=== PATIENT | female | born 1955 | race Caucasian/White ===

== ENCOUNTER 2018-07-11 13:00 | Emergency (ER) | payer MEDICARE, OTHER, SELFPAY ==
[2018-07-11 13:27] VITALS: BP 120/76; PULSE 70; RESP 16; TEMP 36.8; O2SAT 97
--- NOTE | 2018-07-11 15:14 | DI.RAD_ITS ---
SYMPTOMS/DIAGNOSIS: COUGH PA AND LATERAL CHEST: The heart is normal in size. The lungs are clear. The mediastinal structures and pleura appear intact. CONCLUSION: Normal chest.
--- NOTE | 2018-07-11 15:15 | W.ED.GENAD ---
Discharge Plan Disposition Patient Disposition: HOME Condition: Fair Discharge Details Chief Complaint: RespSymp Clinical Impression: URI (upper respiratory infection) Reason For Visit: cough Primary Care Provider: EUGENIE GUZMÁN ED Provider: Georgette Killian Home Meds and New Rx's Prescriptions: New benzonatate [Tessalon Perles] 100 mg capsule 100 mg PO QID PRN (Reason: cough) Qty: 10 RF: 0 Continued multivitamin [Daily Multi-Vitamin] 1 EACH tablet 1 ea PO DAILY RF: 0 Amino Acid 1 EACH capsule 1 ea PO DAILY RF: 0 calcium carbonate 500 MG tablet,chewable 500 mg PO DAILY Qty: 3 RF: 0 cholecalciferol (vitamin D3) 2,000 UNIT tablet 2,000 unit PO DAILY RF: 0 Folbic RF 1 EACH tablet 1 ea PO DAILY RF: 0 [est/test pellets RF: 0 Magnesium (oxide/AA chelate) 300 MG capsule 600 mg PO DAILY RF: 0 aspirin 81 MG tablet,chewable 81 mg PO DAILY RF: 0 Atorvastatin Calcium 10 MG tablet 10 mg PO DAILY RF: 0 amitriptyline 25 mg Tablet 25 mg PO UNKNOWN RF: 0 gabapentin 300 MG capsule 300 mg PO DAILY RF: 0 bupropion HCl 150 MG tablet extended release 24 hr 300 mg PO DAILY RF: 0 Discharge Instructions Instructions: Upper Respiratory Infection (ED) Additional Instructions: Encourage hydration. Tylenol and/or ibuprofen as needed for discomfort. Tessalon Perles as prescribed to help with symptomatic management. If he develops shortness of breath, difficulty breathing, inability to stay hydrated or other new/worsening symptoms please seek care urgently once again. Otherwise, please follow-up with your primary care in 1 week for reevaluation. Referrals: EUGENIE GUZMÁN [Primary Care Provider] - Discharge Data Discharge Date/Time-TO BE ENTERED AT DEPARTURE: 07/11/18 16:50 Medical Decision Making Patient is 63-year-old female presenting today with chief complaint of cough. She reports that the cough initially began in April. She was seen by her primary care physician in [place] where she typically lives and was placed on ciprofloxacin. Reports that she finished her ciprofloxacin on 07/01/2018. Was that she had patient feeling quite well but seemed to have recurrence of symptoms after became ill last week. She denies any fevers or chills. Is having tussive emesis was particularly bothersome this weekend and has since begun to subside. States she is having some discomfort associated with the cough. No chest pain at rest. Is not feeling short of breath. [place] like she was wheezing last night but this too has resolved. Patient medication, noting that she is on estrogen testosterone pellets. Reports the last that she did not was testosterone only. She reports that she receives these every 6 months in [place]. She reports she is receiving these for the past 8 years to help her even out her hormones while undergoing menopause. I am concerned that with this, as well as a recent travel, she is at increased risk for PE. I discussed this with the patient. Her vital signs are reassuring. We will obtain laboratory evaluation including d-dimer as a screening tool for the Chest x-ray reviewed by myself no acute abnormalities noted. Awaiting radiology read X-ray reviewed by radiologist no acute abnormality is noted. Laboratory evaluation is reassuring. D-dimer is within normal limits. Discussed these findings with the patient. No leukocytosis. Advised this is likely viral etiology. Encouraged hydration. Tylenol and/or ibuprofen as needed for discomfort. Will prescribe Tessalon Perles for the patient as these worked well for her in the past for symptomatic management. Advise follow-up with primary care in 1 week for reevaluation of symptoms have not completely improved. We discussed new/worsening symptoms and when to seek care urgently once again. All of her questions and concerns were addressed and she is in agreement with this plan HPI General Mode of arrival: ambulatory. Date/Time Provider Initiated Documentation: 07/11/18 15:07. Limitations to Documentation: no limitations. Information obtained by: patient. History of Present Illness 63 year old F presents to the emergency department with the chief complaint of cough, described as moderate, Quality is described as aching, and is localized to the chest. Patient reports no radiation. Patient started experiencing this week(s) and it has been intermittent. No relieving factors improve symptom(s), Other factors that worsen symptoms (discomfort with cough) . Patient notes chest pain and cough; denies fever/chills, headaches, nausea/vomiting, rash, shortness of breath and syncope. Patient did receive the following treatments prior to arrival, none Related Data Home Medications Medication Instructions Recorded Confirmed Amino Acid 1 ea PO DAILY 01/22/14 07/11/18 Folbic RF 1 ea PO DAILY 01/22/14 05/11/17 calcium carbonate 500 mg PO DAILY #3 tab.chew 01/22/14 07/11/18 cholecalciferol (vitamin D3) 2,000 unit PO DAILY 01/22/14 07/11/18 multivitamin [Daily Multi-Vitamin] 1 ea PO DAILY 01/22/14 07/11/18 Magnesium (oxide/AA chelate) 600 mg PO DAILY 05/06/16 05/11/17 gabapentin 300 mg PO DAILY 05/11/17 07/11/18 bupropion HCl 300 mg PO DAILY tabcr 05/12/17 07/11/18 aspirin 81 mg PO DAILY tab-cap 05/17/17 07/11/18 Atorvastatin Calcium 10 mg PO DAILY tab-cap 06/03/17 amitriptyline 25 mg PO UNKNOWN 07/11/18 07/11/18 benzonatate [Tessalon Perles] 100 mg PO QID PRN #10 [facility] 07/11/18 Previous Rx's Medication Instructions Recorded bupropion HCl 300 mg PO DAILY tabcr 05/12/17 benzonatate [Tessalon Perles] 100 mg PO QID PRN #10 [facility] 07/11/18 Allergies Allergy/AdvReac Type Severity Reaction Status Date / Time oxycodone AdvReac nausea Unverified 07/11/18 13:34 propoxyphene AdvReac hyperactivi Unverified 07/11/18 13:34 ty General Stated Complaint: RespSymp HAYLEE: 4 Review of Systems Constitutional Reports as per HPI and Denies headache(s) Eyes Reports as per HPI, Denies eye discharge and Denies irritation ENT Denies headache(s) Cardiovascular Reports as per HPI, Reports chest pain (with cough), Denies chest pain at rest, Denies chest pain with activity, Denies diaphoresis, Denies leg edema, Denies lightheadedness, Denies palpitations, Denies dyspnea and Denies dyspnea on exertion Respiratory Reports as per HPI, Denies chest congestion, Reports cough, Denies pain on inspiration, Reports pain with cough, Denies dyspnea and Denies dyspnea on exertion Gastrointestinal Reports as per HPI, Denies abdominal pain, Denies change in bowel habits, Denies nausea and Denies vomiting Integumentary/Breasts Reports as per HPI and Denies rash Neurologic Denies headache(s) Endocrine Denies palpitations [facility] Medical History Attention deficit hyperactivity disorder Depression Hormone replacement therapy Pruritus of forearm Seasonal allergic rhinitis Shingles Surgical History section Hysterectomy, Laproscopic Family History Mother Personal history of malignant neoplasm mat aunt Personal history of malignant neoplasm Social History Smoking/Tobacco Use Status: Never Exam Const General: cooperative, healthy appearing, comfortable, no acute distress, well developed and well groomed Nutritional Appearance: average body habitus and well nourished Orientation: alert and awake [facility] Head: normal to inspection, normocephalic and atraumatic Ears: hearing grossly normal bilaterally, external ears normal and TM's normal bilaterally General nose exam: external nose normal and nares normal Face and sinus: normal facial exam, sinuses nontender and face symmetric Mouth: oral mucosae normal, lip normal, tongue normal, oropharynx normal and moist mucous membranes Teeth and gingiva: dentition normal Throat: posterior oropharynx normal, tonsils normal and uvula midline Eyes General: appearance normal, both eyes and all related structures Neck Neck: normal visual inspection, full ROM, no lymphadenopathy and no meningeal signs Chest Chest: normal inspection of the chest, normal palpation of entire chest wall and no crepitus Resp Effort & Inspection: normal respiratory effort, able to speak in complete sentences and no respiratory distress Auscultation: clear to auscultation bilaterally, no rales, no rhonchi and no wheezes Cardio Rate: regular rate Rhythm: regular rhythm Heart Sounds: S1 normal and S2 normal Skin General skin exam: no rashes or lesions noted Neuro General: alert and awake Cognition: normal cognition Speech: speech normal Gait: normal gait Extrem General: normal to inspection, no pedal edema, no calf tenderness and normal gait Psych Appearance: grossly normal and well kempt Mental Status: mental status grossly normal Speech and Movement: speech and movement normal Course Vital Signs Temperature 36.8 C 07/11/18 13:27 Pulse 70 07/11/18 13:27 Respiratory Rate 16 07/11/18 13:27 Blood Pressure 120/76 07/11/18 13:27 Pulse Oximetry 97 07/11/18 13:27 Temperature 36.8 C 07/11/18 13:27 Pulse 70 07/11/18 13:27 Respiratory Rate 16 07/11/18 13:27 Respiratory Effort Non-Labored 07/11/18 14:49 Respiratory Depth Normal 07/11/18 14:49 Blood Pressure 120/76 07/11/18 13:27 Blood Pressure Position Sitting 07/11/18 13:27 Pulse Oximetry 97 07/11/18 13:27
--- NOTE | 2018-07-11 15:18 | ED.GENADUL_ITS ---
Discharge Plan Disposition Patient Disposition: HOME Condition: Fair Discharge Details Chief Complaint: RespSymp Clinical Impression: URI (upper respiratory infection) Reason For Visit: cough Primary Care Provider: EUGENIE GUZMÁN ED Provider: Georgette Killian Home Meds and New Rx's Prescriptions: New benzonatate [Tessalon Perles] 100 mg capsule 100 mg PO QID PRN (Reason: cough) Qty: 10 RF: 0 Continued multivitamin [Daily Multi-Vitamin] 1 EACH tablet 1 ea PO DAILY RF: 0 Amino Acid 1 EACH capsule 1 ea PO DAILY RF: 0 calcium carbonate 500 MG tablet,chewable 500 mg PO DAILY Qty: 3 RF: 0 cholecalciferol (vitamin D3) 2,000 UNIT tablet 2,000 unit PO DAILY RF: 0 Folbic RF 1 EACH tablet 1 ea PO DAILY RF: 0 [est/test pellets RF: 0 Magnesium (oxide/AA chelate) 300 MG capsule 600 mg PO DAILY RF: 0 aspirin 81 MG tablet,chewable 81 mg PO DAILY RF: 0 Atorvastatin Calcium 10 MG tablet 10 mg PO DAILY RF: 0 amitriptyline 25 mg Tablet 25 mg PO UNKNOWN RF: 0 gabapentin 300 MG capsule 300 mg PO DAILY RF: 0 bupropion HCl 150 MG tablet extended release 24 hr 300 mg PO DAILY RF: 0 Discharge Instructions Instructions: Upper Respiratory Infection (ED) Additional Instructions: Encourage hydration. Tylenol and/or ibuprofen as needed for discomfort. Tessalon Perles as prescribed to help with symptomatic management. If he develops shortness of breath, difficulty breathing, inability to stay hydrated or other new/worsening symptoms please seek care urgently once again. Otherwise, please follow-up with your primary care in 1 week for reevaluation. Referrals: EUGENIE GUZMÁN [Primary Care Provider] - Discharge Data Discharge Date/Time-TO BE ENTERED AT DEPARTURE: 07/11/18 16:50 Medical Decision Making Patient is 63-year-old female presenting today with chief complaint of cough. She reports that the cough initially began in April. She was seen by her primary care physician in [place] where she typically lives and was placed on ciprofloxacin. Reports that she finished her ciprofloxacin on 07/01/2018. Was that she had patient feeling quite well but seemed to have recurrence of symptoms after became ill last week. She denies any fevers or chills. Is having tussive emesis was particularly bothersome this weekend and has since begun to subside. States she is having some discomfort associated with the cough. No chest pain at rest. Is not feeling short of breath. [place] like she was wheezing last night but this too has resolved. Patient medication, noting that she is on estrogen testosterone pellets. Reports the last that she did not was testosterone only. She reports that she receives these every 6 months in [place]. She reports she is receiving these for the past 8 years to help her even out her hormones while undergoing menopause. I am concerned that with this, as well as a recent travel, she is at increased risk for PE. I discussed this with the patient. Her vital signs are reassuring. We will obtain laboratory evaluation including d-dimer as a screening tool for the Chest x-ray reviewed by myself no acute abnormalities noted. Awaiting radiology read X-ray reviewed by radiologist no acute abnormality is noted. Laboratory evaluation is reassuring. D-dimer is within normal limits. Discussed these findings with the patient. No leukocytosis. Advised this is likely viral etiology. Encouraged hydration. Tylenol and/or ibuprofen as needed for discomfort. Will prescribe Tessalon Perles for the patient as these worked well for her in the past for symptomatic management. Advise follow-up with primary care in 1 week for reevaluation of symptoms have not completely improved. We discussed new/worsening symptoms and when to seek care urgently once again. All of her questions and concerns were addressed and she is in agreement with this plan HPI General Mode of arrival: ambulatory . Date/Time Provider Initiated Documentation: 07/11/18 15:07 . Limitations to Documentation: no limitations . Information obtained by: patient . History of Present Illness 63 year old F presents to the emergency department with the chief complaint of cough, described as moderate, Quality is described as aching, and is localized to the chest. Patient reports no radiation. Patient started experiencing this week(s) and it has been intermittent. No relieving factors improve symptom(s), Other factors that worsen symptoms (discomfort with cough) . Patient notes chest pain and cough; denies fever/chills, headaches, nausea/vomiting, rash, shortness of breath and syncope. Patient did receive the following treatments prior to arrival, none Related Data Home Medications Medication Instructions Recorded Confirmed Amino Acid 1 ea PO DAILY 01/22/14 07/11/18 Folbic RF 1 ea PO DAILY 01/22/14 05/11/17 calcium carbonate 500 mg PO DAILY #3 tab.chew 01/22/14 07/11/18 cholecalciferol (vitamin D3) 2,000 unit PO DAILY 01/22/14 07/11/18 multivitamin [Daily Multi-Vitamin] 1 ea PO DAILY 01/22/14 07/11/18 Magnesium (oxide/AA chelate) 600 mg PO DAILY 05/06/16 05/11/17 gabapentin 300 mg PO DAILY 05/11/17 07/11/18 bupropion HCl 300 mg PO DAILY tabcr 05/12/17 07/11/18 aspirin 81 mg PO DAILY tab-cap 05/17/17 07/11/18 Atorvastatin Calcium 10 mg PO DAILY tab-cap 06/03/17 amitriptyline 25 mg PO UNKNOWN 07/11/18 07/11/18 benzonatate [Tessalon Perles] 100 mg PO QID PRN #10 [facility] 07/11/18 Previous Rx's Medication Instructions Recorded bupropion HCl 300 mg PO DAILY tabcr 05/12/17 benzonatate [Tessalon Perles] 100 mg PO QID PRN #10 [facility] 07/11/18 Allergies Allergy/AdvReac Type Severity Reaction Status Date / Time oxycodone AdvReac nausea Unverified 07/11/18 13:34 propoxyphene AdvReac hyperactivi Unverified 07/11/18 13:34 ty General Stated Complaint: RespSymp HAYLEE: 4 Review of Systems Constitutional Reports as per HPI and Denies headache(s) Eyes Reports as per HPI, Denies eye discharge and Denies irritation ENT Denies headache(s) Cardiovascular Reports as per HPI, Reports chest pain (with cough), Denies chest pain at rest, Denies chest pain with activity, Denies diaphoresis, Denies leg edema, Denies lightheadedness, Denies palpitations, Denies dyspnea and Denies dyspnea on exertion Respiratory Reports as per HPI, Denies chest congestion, Reports cough, Denies pain on inspiration, Reports pain with cough, Denies dyspnea and Denies dyspnea on exertion Gastrointestinal Reports as per HPI, Denies abdominal pain, Denies change in bowel habits, Denies nausea and Denies vomiting Integumentary/Breasts Reports as per HPI and Denies rash Neurologic Denies headache(s) Endocrine Denies palpitations [facility] Medical History Attention deficit hyperactivity disorder Depression Hormone replacement therapy Pruritus of forearm Seasonal allergic rhinitis Shingles Surgical History section Hysterectomy, Laproscopic Family History Mother Personal history of malignant neoplasm mat aunt Personal history of malignant neoplasm Social History Smoking/Tobacco Use Status: Never Exam Const General: cooperative, healthy appearing, comfortable, no acute distress, well developed and well groomed Nutritional Appearance: average body habitus and well nourished Orientation: alert and awake [facility] Head: normal to inspection, normocephalic and atraumatic Ears: hearing grossly normal bilaterally, external ears normal and TM's normal bilaterally General nose exam: external nose normal and nares normal Face and sinus: normal facial exam, sinuses nontender and face symmetric Mouth: oral mucosae normal, lip normal, tongue normal, oropharynx normal and moist mucous membranes Teeth and gingiva: dentition normal Throat: posterior oropharynx normal, tonsils normal and uvula midline Eyes General: appearance normal, both eyes and all related structures Neck Neck: normal visual inspection, full ROM, no lymphadenopathy and no meningeal signs Chest Chest: normal inspection of the chest, normal palpation of entire chest wall and no crepitus Resp Effort & Inspection: normal respiratory effort, able to speak in complete sentences and no respiratory distress Auscultation: clear to auscultation bilaterally, no rales, no rhonchi and no wheezes Cardio Rate: regular rate Rhythm: regular rhythm Heart Sounds: S1 normal and S2 normal Skin General skin exam: no rashes or lesions noted Neuro General: alert and awake Cognition: normal cognition Speech: speech normal Gait: normal gait Extrem General: normal to inspection, no pedal edema, no calf tenderness and normal gait Psych Appearance: grossly normal and well kempt Mental Status: mental status grossly normal Speech and Movement: speech and movement normal Course Vital Signs Temperature 36.8 C 07/11/18 13:27 Pulse 70 07/11/18 13:27 Respiratory Rate 16 07/11/18 13:27 Blood Pressure 120/76 07/11/18 13:27 Pulse Oximetry 97 07/11/18 13:27 Temperature 36.8 C 07/11/18 13:27 Pulse 70 07/11/18 13:27 Respiratory Rate 16 07/11/18 13:27 Respiratory Effort Non-Labored 07/11/18 14:49 Respiratory Depth Normal 07/11/18 14:49 Blood Pressure 120/76 07/11/18 13:27 Blood Pressure Position Sitting 07/11/18 13:27 Pulse Oximetry 97 07/11/18 13:27
[2018-07-11 16:07] LABS: Abs Immature Grans 0.01 k/cumm (0.0-0.09); Absolute Basophil Count 0.05 k/cumm (0.0-0.2); Absolute Eosinophil Count 0.08 k/cumm (0.0-0.7); Absolute Lymphocyte Count 1.98 k/cumm (1.2-3.4); Absolute Monocyte Count 0.53 k/cumm (0.11-0.7); Absolute Neutrophil Count 2.74 k/cumm (1.2-6.7); Basophils % 0.9; Eosinophils % 1.5; HCT 40.5 % (36.0-46.0); HGB 13.4 g/dL (12.0-15.5); Immature Grans % 0.2; Lymphocytes % 36.7; Mean Corp. HGB Concentration 33.1 g/dL (32.0-36.0); Mean Corpuscular Volume 90.8 fL (80-95); Mean Platelet Volume 10.3 fL (8.0-11.0); Monocytes % 9.8; Neutrophils % 50.9; Platelet Count 220 x1000/uL (130-400); RBC 4.46 m/cumm (4.00-5.20); RBC Distribution Width 13.7 % (11.7-14.6); White Blood Cell Count 5.39 k/cumm (4.4-10.8)
[2018-07-11 16:19] LABS: ALT 37 U/L (12-78); AST 36 U/L (15-37); Albumin 3.7 g/dL (3.4-5.0); Alkaline Phosphatase 62 U/L (46-116); Anion Gap 8.6 mmol/L (3-11); BUN 8 mg/dL (7-18); Bilirubin, Total 0.3 mg/dL (0.2-1.0); CO2 28.4 mmol/L (21.0-32.0); CREATININE 0.73 mg/dL (0.55-1.02); Calcium 8.4 mg/dL (8.5-10.1); Chloride 98 mmol/L (98-107); Glucose 82 mg/dL (70-100); Potassium 3.5 mmol/L (3.5-5.1); Sodium 135 mmol/L (136-145); Total Protein 7.7 g/dL (6.4-8.2)
[2018-07-11 16:34] LABS: D-Dimer 404 ng/mlFEU (<500)
== END 2018-07-11 16:50 | disposition home or self-care (01) ==
PROVIDERS: Emergency Provider Physician Assistant; PCP Family Medicine
DX: J06.9 Acute upper respiratory infection, unspecified (principal)
CPT/HCPCS: 80053; 99283; 71046; 85025; 85379

== ENCOUNTER 2019-02-03 11:00 | Outpatient (REF) | payer MEDICARE, OTHER, SELFPAY | END 2019-02-03 11:20 | LOC: LBN 11:00 | PROVIDERS: PCP Family Medicine; Visit Provider Nurse Practitioner Family | DX: R10.2 Pelvic and perineal pain (principal) | CPT/HCPCS: 87086 ==

== ENCOUNTER 2019-11-22 02:22 | Outpatient (CLI) | payer MEDICARE, OTHER, SELFPAY ==
[2019-11-22 12:33] LABS: HCT 42.1 % (36.0-46.0); HGB 14.3 g/dL (12.0-15.5); Mean Corpuscular Volume 94.2 fL (80-95); Mean Platelet Volume 10.5 fL (8.0-11.0); Platelet Count 285 x1000/uL (130-400); RBC 4.47 m/cumm (4.00-5.20); White Blood Cell Count 6.59 k/cumm (4.4-10.8)
[2019-11-22 16:31] LABS: Estradiol 44 pg/mL (See Note)
[2019-11-23 09:48] LABS: FSH 30.9 mIU/mL (See Note)
[2019-11-25 05:34] LABS: Testosterone, Total 11 ng/dL (8-60)
== END 2019-11-22 02:42 ==
PROVIDERS: PCP Registered Nurse; Visit Provider Obstetrics & Gynecology
DX: N95.8 Other specified menopausal and perimenopausal disorders (principal); R10.2 Pelvic and perineal pain
CPT/HCPCS: 36415; 84403; 85027; 82670; 83001

== ENCOUNTER 2020-02-16 14:41 | Outpatient (REF) | payer MEDICARE, OTHER, SELFPAY ==
[2020-02-16 21:40] LABS: Anion Gap 8.1 mmol/L (3-11); BUN 13 mg/dL (7-18); CO2 28.9 mmol/L (21.0-32.0); CREATININE 0.74 mg/dL (0.55-1.02); Calcium 9.2 mg/dL (8.5-10.1); Chloride 103 mmol/L (98-107); Glucose 83 mg/dL (74-106); Potassium 4.2 mmol/L (3.5-5.1); Sodium 140 mmol/L (136-145)
== END 2020-02-16 15:01 ==
LOC: NCHCN 14:41
PROVIDERS: PCP Registered Nurse; Visit Provider Registered Nurse
DX: I10 Essential (primary) hypertension (principal)
CPT/HCPCS: 80048

== ENCOUNTER 2020-02-26 10:11 | Outpatient (REF) | payer MEDICARE, OTHER, SELFPAY ==
[2020-02-26 20:40] LABS: Anion Gap 9.4 mmol/L (3-11); BUN 16 mg/dL (7-18); CO2 26.6 mmol/L (21.0-32.0); CREATININE 0.91 mg/dL (0.55-1.02); Calcium 9.6 mg/dL (8.5-10.1); Chloride 102 mmol/L (98-107); Glucose 108 mg/dL (74-106); Potassium 5.1 mmol/L (3.5-5.1); Sodium 138 mmol/L (136-145)
== END 2020-02-26 10:31 ==
LOC: NCHCN 10:11
PROVIDERS: PCP Registered Nurse; Visit Provider Registered Nurse
DX: I10 Essential (primary) hypertension (principal)
CPT/HCPCS: 80048

== ENCOUNTER 2020-03-27 01:09 | Outpatient (CLI) | payer MEDICARE, OTHER, SELFPAY ==
--- NOTE | 2020-03-27 | DI.MAMMO_ITS ---
EXAM: MAMMO SCREENING CLINICAL HISTORY: SCREENING MAMMO Z12.39 TECHNIQUE: Mammograms were interpreted according to the usual protocol including computer analysis w [employer] CAD system, tomosynthesis and C-view imaging. COMPARISON: 2010 through 2016 FINDINGS: The breasts are composed of heterogeneously dense fibroglandular densities, Breast Density category C . No suspicious masses or suspicious microcalcifications are seen. Vascular calcifications are inciden tally noted. No skin thickening or abnormal axillary lymph nodes are seen. There has been no significant change from prior exams. IMPRESSION: BI-RADS Category 1: Negative mammogram Yearly screening mammography is recommended. Breast Density - Category C, heterogeneously dense tissue which decreases the sensitivity of the mamm ogram. The mammogram demonstrates the patient's breast tissue is dense. Dense breast tissue is very common a nd is not abnormal but dense breast tissue can make it harder to find cancer on a mammogram. Also, de nse breast tissue may increase breast cancer risk. This information about the result of the mammogram report was provided to the patient to raise their awareness. Use this report when you speak with the patient about their risks for breast cancer, which includes their family history. At that time, you may recommend additional screening tests (Ultrasound or MRI) as they might be useful based on their r isk. A negative radiographic report should not delay biopsy if a dominant or clinically suspicious mass is present. Up to ten percent of cancers are not identified on mammography. A negative report may reinforce clinical impression. Adenosis and dense breasts may obscure an underlying neoplasm. False positive reports average 6 to 10%.
== END 2020-03-27 01:29 ==
PROVIDERS: PCP Registered Nurse; Visit Provider Registered Nurse
DX: Z12.31 Encounter for screening mammogram for malignant neoplasm of breast (principal); R92.2 Inconclusive mammogram
CPT/HCPCS: 77063; 77067

== ENCOUNTER 2020-05-08 09:56 | Outpatient (CLI) | payer MEDICARE, OTHER, SELFPAY ==
[2020-05-10 16:43] LABS: Patient Race White; SARS-CoV-2 RNA Undetected (Undetected); SARS-CoV-2 Specimen Source Nasal
== END 2020-05-08 10:16 ==
LOC: NCHCO 09:59 → LBO 12:34
PROVIDERS: PCP Registered Nurse; Visit Provider Registered Nurse
DX: Z20.828 Contact with and (suspected) exposure to other viral communicable diseases (principal)
CPT/HCPCS: U0003

== ENCOUNTER 2020-05-22 09:35 | Outpatient (CLI) | payer MEDICARE, OTHER, SELFPAY ==
[2020-05-26 19:06] LABS: Patient Race White; SARS-CoV-2 RNA Undetected (Undetected); SARS-CoV-2 Specimen Source Nasal
== END 2020-05-22 09:55 ==
PROVIDERS: PCP Registered Nurse; Visit Provider Registered Nurse
DX: Z20.828 Contact with and (suspected) exposure to other viral communicable diseases (principal)
CPT/HCPCS: U0003

== ENCOUNTER 2020-11-28 11:04 | Outpatient (REF) | payer MEDICARE, OTHER, SELFPAY ==
[2020-11-28 13:28] LABS: Anion Gap 8.3 mmol/L (3-11); BUN 18 mg/dL (7-18); CO2 26.7 mmol/L (21.0-32.0); CREATININE 0.7 mg/dL (0.55-1.02); Calcium 9.8 mg/dL (8.5-10.1); Chloride 105 mmol/L (98-107); Glucose 122 mg/dL (74-106); Potassium 4.7 mmol/L (3.5-5.1); Sodium 140 mmol/L (136-145)
== END 2020-11-28 11:05 | disposition home or self-care (01) ==
LOC: NCHCN 11:04
PROVIDERS: PCP Registered Nurse; Visit Provider Registered Nurse
DX: I10 Essential (primary) hypertension (principal)
CPT/HCPCS: 80048

== ENCOUNTER 2020-12-06 01:58 | Outpatient (CLI) | payer MEDICARE, OTHER, SELFPAY ==
[2020-12-06 10:38] LABS: Source Nasal/Nares
[2020-12-06 15:04] LABS: COVID-19 PCR Negative (Negative)
== END 2020-12-06 01:59 | disposition home or self-care (01) ==
LOC: LBO 01:59
PROVIDERS: PCP Registered Nurse; Visit Provider Otolaryngology
DX: Z20.822 Contact with and (suspected) exposure to COVID-19 (principal); Z01.818 Encounter for other preprocedural examination
CPT/HCPCS: 87635

== ENCOUNTER 2021-01-13 02:03 | Outpatient (CLI) | payer MEDICARE, OTHER, SELFPAY ==
--- NOTE | 2021-01-13 | DI.US_ITS ---
Exam(s) US THYROID EXAM: US THYROID CLINICAL HISTORY: FU THYROID NODULE E04.1. TECHNIQUE: Ultrasound thyroid performed using standard protocol. COMPARISON: US CAROTID ULTRASOUND from 05/12/2017 FINDINGS: Both thyroid lobes as well as the isthmus exhibit normal size RIGHT THYROID LOBE: Measures 1.5 cm AP x 1 point cm wide x 4.6 cm craniocaudal LEFT THYROID LOBE: Measures 1.5 cm AP x 1.3 wide x 4.0 cm craniocaudal ISTHMUS: 3 millimeters thick, within normal limits. There is a colloid cyst in the left side of the isthmus which measures 3 x 2 millimeters. Significant nodules are as follows: RIGHT THYROID LOBE: There is a solitary 2-3 millimeter benign colloid cyst in the right lobe. Previously described incid ental finding of the right lobe seen on carotid ultrasound 2017 is not seen on present study. There is no significant adenopathy on the right side. LEFT THYROID LOBE: Nodule #1 the dominant nodule in the left lobe located posteriorly, medial to the carotid artery. Size: 0.8 cm x 0.5 cm x 0.7 cm Composition: Mixed solid cystic = 1 point Echogenicity: Hypoechoic= 2 point Shape: Wider than taller= 0 points Margin: Ill- defined- 0 points Echogenic Foci: None= 0 points Total points for this nodule: 3 ACR Ti-Rads Category: 3-mildly suspicious. Nodule #2 Size: 0.5 cm x 0.3 cm x 0.4 cm Composition: Solid= 2 point Echogenicity: Isoechoic= 1 point Shape: Wider than taller= 0 point Margin: [id number]-[id number]= 0 points Echogenic Foci: None= 0 point Total Points for this nodule: 3 ACR Ti-Rads Category: 3 Nodule #3 Size: 0.3 cm x 0.4 cm x 0.3 cm Composition: Spongiform= 0 point Echogenicity: Isoechoic= 1 point Shape: Wider than taller= 0 point Margin: Well-defined= 0 points Echogenic Foci: None= 0 point Total points for this nodule: 1 ACR Ti-Rads Category: 2 ISTHMUS: There is a colloid cyst at the junction of the isthmus and left lobe measuring 3 millimeters. LYMPH NODES: There is no significant adenopathy. IMPRESSION: 1. The dominant nodule in the left lobe is is category TiRads 3 and measures less than 1 cm. Appropr iate follow-up is repeat ultrasound in 6 months. TiRads: 3 2. Solitary benign colloid cyst in the right lobe peer 3. There is no significant lymphadenopathy. DATA REPOSITORY:
== END 2021-01-13 02:23 ==
PROVIDERS: PCP Registered Nurse; Visit Provider Otolaryngology
DX: E04.2 Nontoxic multinodular goiter (principal); E04.1 Nontoxic single thyroid nodule
CPT/HCPCS: 76536

== ENCOUNTER → 2021-01-30 08:16 | Outpatient (BNVA) | payer MEDICARE, OTHER, SELFPAY | PROVIDERS: PCP Registered Nurse; Referring Provider Registered Nurse; Visit Provider Psychiatry & Neurology Neurology | DX: R20.0 Anesthesia of skin (principal); I10 Essential (primary) hypertension; E78.5 Hyperlipidemia, unspecified; F32.9 Major depressive disorder, single episode, unspecified; R90.82 White matter disease, unspecified; Z86.19 Personal history of other infectious and parasitic diseases | CPT/HCPCS: 99215 ==

== ENCOUNTER 2021-03-28 09:52 | Outpatient (REF) | payer MEDICARE, OTHER, SELFPAY ==
--- NOTE | 2021-03-28 09:00 | PAPFT_PTH ---
PATIENT: Laura Forman LOC: [facility] U#:[id number] AGE/SX: 65/F ROOM: RE03/28/[address]: JUSTIN Edmonds : 1955 BED: DIS: 03/28/2021 SPEC #: [id number] RECD: 03/28/21 12:55 STATUS: SNEHAL REKayleigh #: [id number] HUBERT: 03/28/21 09:[address]: Nicolasa Fulton DEPT: [facility] Cytology RECD BY: Fariba Nuñez ENTERED: 03/28/21 12:55 SP TYPE: PAPFT OTHR DR: Bernie Jaime Tissues: 1 - CX/ENDOCX FOR PAP SMEARS Procedures: PAP THIN PREP/UVM Screening HPV DNA PROBE Comments: [id number]
== END 2021-03-28 09:53 | disposition home or self-care (01) ==
LOC: LBN 09:52
PROVIDERS: PCP Registered Nurse; Visit Provider Nurse Practitioner Family
DX: Z12.4 Encounter for screening for malignant neoplasm of cervix (principal); Z11.51 Encounter for screening for human papillomavirus (HPV); Z01.419 Encounter for gynecological examination (general) (routine) without abnormal findings
CPT/HCPCS: 88142; 87624

== ENCOUNTER 2021-04-25 03:43 | Outpatient (CLI) | payer MEDICARE, OTHER, SELFPAY ==
--- NOTE | 2021-04-25 15:15 | DI.MAMMO_ITS ---
Exam(s) MAMMO SCREENING EXAM: MAMMO SCREENING CLINICAL HISTORY: SCREENING, Z12.39 TECHNIQUE: Mammograms were interpreted according to the usual protocol including computer analysis w [facility] CAD system, tomosynthesis and C-view imaging. COMPARISON: FINDINGS: The breasts are heterogeneously dense. No dominant mass or clumped microcalcification is identified in either breast. The current examination is compared with previous examinations including March 2020 and there has been no gross interval change in appearance in comparison with the prior studies. IMPRESSION: No specific evidence of malignancy at this time. Routine screening examinations are suggested at yea rly intervals in this age group according to the ACS ACR guidelines. BI-RADS Category 1 - Negative Breast Density - Category C - Heterogeneously dense
== END 2021-04-25 04:03 ==
PROVIDERS: PCP Registered Nurse; Visit Provider Nurse Practitioner Family
DX: Z12.31 Encounter for screening mammogram for malignant neoplasm of breast (principal); R92.8 Other abnormal and inconclusive findings on diagnostic imaging of breast
CPT/HCPCS: 77063; 77067

== ENCOUNTER 2021-06-03 09:02 | Outpatient (CLI) | payer MEDICARE, OTHER, SELFPAY ==
[2021-06-03 16:13] LABS: TSH 0.79 uIU/mL (0.36-3.74)
[2021-06-03 22:13] LABS: Estradiol 52 pg/mL (See Note); Progesterone <0.2 ng/mL (See Table)
[2021-06-03 22:50] LABS: FSH 29.7 mIU/mL (See Note)
[2021-06-06 14:21] LABS: Estrone 37 pg/mL
[2021-06-07 16:45] LABS: Testosterone, Free 1.23 ng/dL (0.06-0.84); Testosterone, Total 49 ng/dL (8-60)
== END 2021-06-03 09:03 | disposition home or self-care (01) ==
LOC: LBO 09:05
PROVIDERS: PCP Registered Nurse; Visit Provider Obstetrics & Gynecology
DX: R53.1 Weakness (principal); E83.50 Unspecified disorder of calcium metabolism; G47.00 Insomnia, unspecified; N92.1 Excessive and frequent menstruation with irregular cycle; N95.8 Other specified menopausal and perimenopausal disorders; N95.1 Menopausal and female climacteric states
CPT/HCPCS: 36415; 84402; 84403; 82626; 82670; 82679; 83001; 83002; 84144; 84443

== ENCOUNTER 2021-06-05 17:30 | Outpatient (REF) | payer MEDICARE, SELFPAY ==
[2021-06-05 21:15] LABS: Hemoglobin A1C 5.7 % (<5.7)
[2021-06-05 21:18] LABS: Calculated LDL 64 mg/dL (<100); Cholesterol 195 mg/dL (<200); HDL Cholesterol 98 mg/dL (40-60); Triglyceride 167 mg/dL (<150)
== END 2021-06-05 17:31 | disposition home or self-care (01) ==
LOC: NCHCN 17:30
PROVIDERS: PCP Registered Nurse; Visit Provider Registered Nurse
DX: E83.50 Unspecified disorder of calcium metabolism (principal); I10 Essential (primary) hypertension; E78.5 Hyperlipidemia, unspecified; Z00.00 Encounter for general adult medical examination without abnormal findings
CPT/HCPCS: 80061; 83036

== ENCOUNTER → 2022-01-02 00:22 | Outpatient (CLI) | payer MEDICARE, OTHER, SELFPAY ==
--- NOTE | 2022-01-02 | DI.DEXA_ITS ---
Exam(s) XR DEXA BONE DENSITY W/WO RILEY EXAM: XR DEXA BONE DENSITY W/WO RILEY CLINICAL HISTORY: POSTMENOPAUSAL Z78.0 SCREENING FOR OSTEOPOROSIS TECHNIQUE: COMPARISON: No exams were available for comparison FINDINGS: DEXA scan was performed according to the usual protocol. Please see the accompanying data sheets. Findings for left hip scanning are T-score -0.9 with left femoral neck T-score -1.8. Prior examinati on of July 07 showed left hip T-score -1.3. Lumbar spine scanning shows T-score -0.6. Prior examination of 05/01 showed lumbar T-score -1.5. Left forearm scanning shows T-score -0.3. IMPRESSION: DEXA scan shows findings consistent with osteopenia according to the WHO criteria. The lateral vertebral scanogram shows no evidence of a vertebral compression fracture. RADIATION DOSE DELIVERED: Total DLP
== END ==
PROVIDERS: PCP Registered Nurse; Visit Provider Registered Nurse
DX: Z78.0 Asymptomatic menopausal state (principal); Z13.820 Encounter for screening for osteoporosis
CPT/HCPCS: 77080

== ENCOUNTER → 2022-05-19 02:42 | Outpatient (CLI) | payer MEDICARE, OTHER, SELFPAY ==
--- NOTE | 2022-05-19 | DI.MAMMO_ITS ---
Exam(s) MAMMO SCREENING EXAM: MAMMO SCREENING CLINICAL HISTORY: SCREENING, Z12.39. TECHNIQUE: Bilateral full field digital CC and MLO mammographic images were obtained with 3D tomosyn thesis and utilizing computer aided detection (CAD). COMPARISON: Prior mammograms were reviewed. FINDINGS: There has been no significant change in the appearance and distribution of the fibroglandular tissue which is moderately dense. There are no new spiculated masses nor malignant appearing microcalcification groups. There is no significant architectural distortion nor skin thickening-retraction. IMPRESSION: No radiographic evidence of malignancy. BI-RADS Category 1 - Negative Breast Density - Category C - Heterogeneously dense Breast density Category C or D implies that the patient has dense breast tissue. Dense breast tissue can make it harder to find cancer on a mammogram. Dense breast tissue is also associated with an incr eased risk of breast cancer. This information about the result of the mammogram report was provided to the patient to raise their awareness. Use this report when you speak with the patient about their risks for breast cancer, which includes their family history. At that time, you may recommend additional screening tests (Ultrasoun d or MRI) as these tests may add significant information. A negative radiographic report should not delay biopsy if a dominant or clinically suspicious mass is present. Up to ten percent of cancers are not identified on mammography. A negative report may reinforce clinical impression. Adenosis and dense breasts may obscure an underlying neoplasm. False positive reports average 6 to 10%. Patient will receive a letter notifying them of these results.
== END ==
PROVIDERS: PCP Registered Nurse; Visit Provider Registered Nurse
DX: Z12.31 Encounter for screening mammogram for malignant neoplasm of breast (principal); R92.8 Other abnormal and inconclusive findings on diagnostic imaging of breast
CPT/HCPCS: 77063; 77067

== ENCOUNTER 2023-01-14 02:20 | Outpatient (CLI) | payer MEDICARE, OTHER, SELFPAY ==
--- NOTE | 2023-01-14 08:30 | DI.US_ITS ---
Exam(s) US THYROID EXAM: US THYROID CLINICAL HISTORY: THYROID NODULE, E04.1. TECHNIQUE: Ultrasound thyroid performed using standard protocol. COMPARISON: US US THYROID from 01/13/2021 FINDINGS: ISTHMUS: 2 mm RIGHT LOBE: Size: 4.6 x 1.5 x 1.7 cm Echogenicity: Normal. Vascularity: Normal. Nodules: A few scattered tiny nodules. LEFT LOBE: Size: 4.9 x 1.5 x 1.3 cm Echogenicity: Heterogeneous Vascularity: Normal. Nodules: Previously noted hypoechoic nodule near the upper pole of the left lobe is not discretely se en on today's exam. There has been mild interval increase in size of circumscribed cystic lesion wit h isoechoic internal focus, labeled nodule 2 on the prior exam. It now measured 9 x 5 x 8 millimeter s. The increase in size is due to increase in cystic component of the lesion. Findings have a benig n appearance, TR 2. No follow-up recommended. The 5 millimeter spongiform nodules noted at the lowe r pole. Appears unchanged. OTHER FINDINGS: None. IMPRESSION: No suspicious thyroid nodules. DATA REPOSITORY:
== END 2023-01-14 02:40 ==
PROVIDERS: PCP Registered Nurse; Visit Provider Otolaryngology
DX: E04.1 Nontoxic single thyroid nodule (principal)
CPT/HCPCS: 76536

== ENCOUNTER 2023-01-25 18:56 | Outpatient (REF) | payer MEDICARE, SELFPAY ==
[2023-01-25 20:26] LABS: Anion Gap 8.4 mmol/L (3-11); BUN 12 mg/dL (7-18); CO2 27.6 mmol/L (21.0-32.0); CREATININE 0.7 mg/dL (0.55-1.02); Calcium 9.3 mg/dL (8.5-10.1); Chloride 104 mmol/L (98-107); Estimated GFR 93.56 (mL/min/1.73m2); Glucose 99 mg/dL (74-106); Potassium 4.6 mmol/L (3.5-5.1); Sodium 140 mmol/L (136-145)
[2023-01-25 20:34] LABS: Hemoglobin A1C 5.6 % (<5.7)
== END 2023-01-25 18:57 | disposition home or self-care (01) ==
LOC: NCHCN 18:56
PROVIDERS: PCP Registered Nurse; Visit Provider Registered Nurse
DX: I10 Essential (primary) hypertension (principal); R73.03 Prediabetes
CPT/HCPCS: 80048; 83036

== ENCOUNTER 2024-03-24 00:08 | Outpatient (CLI) | payer MEDICARE, SELFPAY ==
--- OUTSIDE RECORDS SUMMARY | 2024-03-24 00:09 | XMS_ITS | Encounter Summary ---
Author Organization [facility] [place] [address] Care Team Providers Care Lens Inserter Name Role Phone Bernie Jaime APRN Primary Care Provider + Encounter Details Date Type Department Care Team (Latest Contact Info) Description 03/26/2023 Travel Social History Tobacco Use Types Packs/Day Years Used Date Smoking Tobacco: Never Smokeless Tobacco: Never Alcohol Use Standard Drinks/Week Comments No 0 (1 standard drink = 0.6 oz pur e alcohol) Sex and Gender Information Value Date Recorded Sex Assigned at Not on file Gender Identity Not on file Sexual Orientation Not on file documented as of this encounter Plan of Treatment Upcoming Encounters Date Type Department Care Team (Late st Contact Info) Description 05/02/2024 1:45 PM EDT Office Visit Dermatology at [facility] [address] [place] [address] Chula Mondragon MD [facility] DR [address] [place] [address] documented as of this encounter Visit Diagnoses Not on filedocumented in this encounter Care Teams Lens Inserter Relationship Specialty Start Date End Date Bernie Jaime APRN [address] [place], [place] [address] PCP - General Family Medicine 9/12/19 documented as of this encounter
--- OUTSIDE RECORDS SUMMARY | 2024-03-24 00:09 | XMS_ITS | Clinical Summary ---
Author Organization [facility] Address [facility] [place] [address] Care Team Providers Care Banker Mason Name Role Phone Bernie Jaime APRN Primary Care Provider + Allergies Active Allergy Reactions Criticality Noted Date Comments Propoxyphene Hcl Medications Medication Sig Dispensed Refills Start Date End Date Status CIS Free Text Med - Progesterone 10/10/2007 Active Additional Information Patient not taking.Reported on 01/24/2018 buPROPion (WELLBUTRIN XL) 300 mg Tablet Sustained Release 24 hr Take 300 mg by mouth every morning. Active dextroamphetamine-amp hetamine (ADDERALL XR) 30 mg Capsule, Sust. Release 24 hr Take 60 mg by mouth every morning. Active gabapentin (NEURONTIN) 300 mg Capsule Take 300 mg by mouth daily. Active atorvastatin (LIPITOR) 10 mg Tablet Take 10 mg by mouth daily. Active aspirin EC 81 mg Tablet, Delayed Release (E.C.) Take 81 mg by mouth daily. Active lisinopriL (Prinivil;Zestril) 20 mg Tablet 03/22/2020 Active triamcinolone (Kenalog) 0.1 % Ointment APPLY TOPICALLY TWICE DAILY TO THE AFFECTED ARM FOR NO MORE THAN 14 DAYS OUT OF THE MONTH 30 g 02/15/2023 Active triamcinolone (Kenalog) 0.1 % CreamIndications:Derm atitis Apply topically to areas of itch on the back and arms twice daily for 2 weeks take 1 week off and repeat as needed 30 g 1 03/26/2023 Active Active Problems Problem Noted Date Diagnosed Date Tinea corporis 07/08/2016 Dermatofibroma 07/08/2016 Postherpetic neuralgia 07/08/2016 Family history of melanoma 07/08/2016 Neurodermatitis 07/06/2013 Family history of malignant melanoma 08/20/2011 Seborrheic keratosis 08/20/2011 Solar lentigo 08/20/2011 Nevus 08/20/2011 Family History Medical History Relation Comments Breast Cancer Mother Hypertension Sister 2 Thyroid Disease Sister 3 Relation Status Comments Brother Alive Mother Alive Sister 1 Alive Sister 2 Sister 3 Social History Tobacco Use Types Packs/Day Years Used Date Smoking Tobacco: Never Smokeless Tobacco: Never Alcohol Use Standard Drinks/Week Comments No 0 (1 standard drink = 0.6 oz pur e alcohol) Sex and Gender Information Value Date Recorded Sex Assigned at Not on file Gender Identity Not on file Sexual Orientation Not on file Last Filed Vital Signs Vital Sign Reading Time Taken Comments Blood Pressure 139/77 01/30/2015 4:22 PM EDT Pulse 83 01/30/2015 4:22 PM EDT Temperature - - Respiratory Rate 20 07/04/2014 2:18 PM EST Oxygen Saturation - - Inhaled Oxygen Concentration - - Weight 56.8 kg (125 lb 4.8 oz) 01/30/2015 4:22 P M EDT Height 154.9 cm (5' 1) 01/30/2015 4:22 PM EDT Body Mass Index 23.68 01/30/2015 4:22 PM EDT Plan of Treatment Upcoming Encounters Date Type Department Care Team (Late st Contact Info) Description 05/02/2024 1:45 PM EDT Office Visit Dermatology at [facility] [address] [place] [address] Chula Mondragon MD [facility] DR [address] [place] [address] Health Maintenance Due Date Last Done Comments CT Colonography 1955 Colonoscopy 1955 Colorectal Cancer Screening 1955 FIT DNA 1955 FIT 1955 Sigmoidoscopy (10 year) with FIT yearly 1955 Sigmoidoscopy 1955 Hepatitis C Screening 1971 Tdap adult 1972 Tetanus vaccine 1972 Breast Cancer Share Decision Needed 1993 Breast Cancer screening 1993 Zoster vaccine (1 of 2) 2003 Advance Directive 2008 Bone Density Scan 2018 Pneumoccocal Vaccine: 65+ (1 of 1 - PCV) 2018 Covid-19 Vaccine (1 - 2022-24 season) 2024 Influenza (Flu) vaccine (1 o f 1 - Influenza standard series) 03/19/2024 Care Teams Banker Mason Relationship Specialty Start Date End Date Bernie Jaime, VOLTMETER OPERATOR [address] [place] [address] PCP - General Family Medicine 03/30/19
--- OUTSIDE RECORDS SUMMARY | 2024-03-24 00:10 | XMS_ITS | Encounter Summary ---
Author Organization [facility] [place] [address] Care Team Providers Care Health Editor Name Role Phone Shelton Hernandez MD Primary Care Provider [phone] Encounter Details Date Type Department Care Team (Late st Contact Info) Description 12/07/2014 Notes [place] [address] Nicolasa Alberto RN Social History Tobacco Use Types Packs/Day Years Used Date Smoking Tobacco: Never Alcohol Use Standard Drinks/Week Comments No 0 (1 standard drink = 0.6 oz pur e alcohol) Sex and Gender Information Value Date Recorded Sex Assigned at Not on file Gender Identity Not on file Sexual Orientation Not on file documented as of this encounter Progress Notes * Nicolasa Alberto RN - 12/07/2014 10:49 AM EDT spoke with pt on 12/07. Pt plans to start Viekira x 12 wks on 12/08, plan is for monthly labs with gif in 4-8 wks here in clinic. Will draft letter with these gif and lab reminders for pt and mail today. documented in this encounter Plan of Treatment Upcoming Encounters Date Type Department Care Team (Late st Contact Info) Description 05/02/2024 1:45 PM EDT Office Visit Dermatology at [facility] [address] [place] [address] Chula Mondragon MD [facility] [address] [place] [address] documented as of this encounter Visit Diagnoses Not on filedocumented in this encounter Care Teams Health Editor Relationship Specialty Start Date End Date Shelton Hernandez MD PCP - General 06/06/14 03/29/19 documented as of this encounter
--- OUTSIDE RECORDS SUMMARY | 2024-03-24 00:10 | XMS_ITS | Encounter Summary ---
Author Organization [facility] [place] [address] Care Team Providers Care Personnel Adviser Name Role Phone Shelton Hernandez MD Primary Care Provider Encounter Details Date Type Department Care Team (Late st Contact Info) Description 09/20/2014 Notes [place] [address] Denise Godoy RN Social History Tobacco Use Types Packs/Day Years Used Date Smoking Tobacco: Never Alcohol Use Standard Drinks/Week Comments No 0 (1 standard drink = 0.6 oz pur e alcohol) Sex and Gender Information Value Date Recorded Sex Assigned at Not on file Gender Identity Not on file Sexual Orientation Not on file documented as of this encounter Progress Notes * Denise Godoy RN - 09/20/2014 2:24 PM EST Patient & [employer] finally in touch regarding her new insurance plan. PA form signed by provider, faxed to [employer]. documented in this encounter Plan of Treatment Upcoming Encounters Date Type Department Care Team (Late st Contact Info) Description 05/02/2024 1:45 PM EDT Office Visit Dermatology at [facility] [address] [place] [address] Chula Mondragon MD [facility] [place] [address] documented as of this encounter Visit Diagnoses Not on filedocumented in this encounter Care Teams Personnel Adviser Relationship Specialty Start Date End Date Shelton Hernandez MD PCP - General 06/06/14 03/29/19 documented as of this encounter
--- OUTSIDE RECORDS SUMMARY | 2024-03-24 00:10 | XMS_ITS | Encounter Summary ---
Author Organization [facility] [place] [address] Care Team Providers Care Carroting Machine Offbearer Name Role Phone Shelton Hernandez MD Primary Care Provider Encounter Details Date Type Department Care Team (Late st Contact Info) Description 08/14/2014 Notes [place] [address] Denise Godoy RN Social History Tobacco Use [...] Progress Notes * Denise Godoy RN - 08/14/2014 11:43 AM EST Pt info resubmitted for Harvoni x 12 weeks, this time to [employer]. No response from [facility]. documented in this encounter Plan of Treatment Upcoming Encounters Date Type Department Care Team (Late st Contact Info) Description 05/02/2024 1:45 PM EDT Office Visit Dermatology at [facility] [address] [place] [address] Chula Mondragon MD [facility] [address] [place] [address] documented as of this encounter Visit Diagnoses Not on filedocumented in this encounter Care Teams Carroting Machine Offbearer Relationship Specialty Start Date End Date Shelton Hernandez MD PCP - General 06/06/14 03/29/19 documented as of this encounter
--- OUTSIDE RECORDS SUMMARY | 2024-03-24 00:10 | XMS_ITS | Encounter Summary ---
Author Organization [facility] [place] [address] Care Team Providers Care Water Chemist Name Role Phone Shelton Guzmán MD Primary Care Provider [phone] Reason for Visit * Reason Comments Follow-up Encounter Details Date Type Department Care Team (Late st Contact Info) Description 01/30/2015 4:30 PM EDT [place] [id number] Bere Quan MD [facility] [place] [address] Chronic hepatitis C without hepatic coma Discharge Disposition: Home Social History Tobacco Use Types Packs/Day Years Used Date Smoking Tobacco: Never Alcohol Use Standard Drinks/Week Comments No 0 (1 standard drink = 0.6 oz pur e alcohol) Sex and Gender Information Value Date Recorded Sex Assigned at Not on file Gender Identity Not on file Sexual Orientation Not on file documented as of this encounter Last Filed Vital Signs Vital Sign Reading Time Taken Comments Blood Pressure 139/77 01/30/2015 4:22 PM EDT Pulse 83 01/30/2015 4:22 PM EDT Temperature - - Respiratory Rate - - Oxygen Saturation - - Inhaled Oxygen Concentration - - Weight 56.8 kg (125 lb 4.8 oz) 01/30/2015 4:22 P M EDT Height 154.9 cm (5' 1) 01/30/2015 4:22 PM EDT Body Mass Index 23.68 01/30/2015 4:22 PM EDT documented in this encounter Progress Notes * Bere Quan MD - 01/30/2015 4:43 PM EDT Gastoenterology & Hepatology Follow Up Note Provider: Bere Quan MD Gender: female : 1955 Referring Physician/Primary Care Physician: SHELTON GUZMÁN MD Problem List: Chronic hepatitis C -genotype 1b -viral load 700,000 Fibroscan Results: 07/04/2014 Mean: 5.9 kPa Mean IQR: 29 % Success rate: 100 % Predicted fibrosis stage: F0- F1 Medications: Outpatient Prescriptions Marked as Taking for the 01/30/15 encounter (Follow-Up) with Bere Quan MD Medication Sig Dispense Refill ??? dextroamphetamine-amphetamine (ADDERALL XR) 30 mg Capsule, Sust. Release 24 hr Take 60 mg by mouth every morning. ??? FLUoxetine (PROZAC) 20 mg Tablet Take 20 mg by mouth daily. ??? kvlmwf-mzefapy-bqbvs-dasabuvir 12.5 mg-75 mg -50 mg/250 mg Tablets, Dose Pack Take 1 packet by mouth 2 times daily. 28 tablet 2 ??? CIS Free Text Med - Progesterone ??? ESTRADIOL ORAL ADR/ALLERGIES: Allergies Allergen Reactions ??? Propoxyphene Hcl Interval History: Laura Mills is a 59 y.o. female who presents for follow up of hep C. She started VEIKIRA MAGALYS on 12/08/14. Tolerating well Taking Veikira magalys bid, no side effects. HCV quant 6 weeks after starting is 85 IU/ml. VITAL SIGNS BP 139/77 Pulse 83 Ht 154.9 cm (5' 1) Wt 56.836 kg (125 lb 4.8 oz) BMI 23.69 kg/m2 Physical Exam: appears well, in no distress. Assessment/Plan: Doing well on hep C therapy. I reinforced importance of taking meds the same time each day. She should have labs monthly and then 3 and 6 months post treatment. If she has an SVR she does not need follow up with us. Lab schedule as follows: 02/02, 03/02, 06/02, 09/02/15 (approximate dates) Greater than 25 minutes of this 30minute visit was spent in counseling and discussion. Bere Quan MD Section of Gastroenterology & Hepatology [address] [place] [id number] Copy: SHELTON GUZMÁN MD documented in this encounter Plan of Treatment Upcoming Encounters Date Type Department Care Team (Late st Contact Info) Description 05/02/2024 1:45 PM EDT Office Visit Dermatology at [facility] [address] [place] [address] Chula Mondragon MD [facility] [address] [place] [address] documented as of this encounter Visit Diagnoses Diagnosis Chronic hepatitis C without hepatic coma documented in this encounter Care Teams Water Chemist Relationship Specialty Start Date End Date Shelton Guzmán MD PCP - General 06/06/14 03/29/19 documented as of this encounter
--- OUTSIDE RECORDS SUMMARY | 2024-03-24 00:10 | XMS_ITS | Encounter Summary ---
Author Organization [facility] [place] [address] Care Team Providers Care Canal Lock Tender Chief Operator Name Role Phone JaimeBernie Ella GOMEZ Primary Care Provider + Reason for Visit * Reason Comments Skin Check Encounter Details Date Type Department Care Team (Late st Contact Info) Description 03/26/2023 10:00 AM EDT Office Visit Dermatology at [facility] [address] [place] [address] Malia Paez MD [facility] DR [address] [place] [address] Solar lentigo; Seborrheic keratosis; Multiple benign nevi; Serrano angioma; Dermatitis Social History Tobacco Use Types Packs/Day Years Used Date Smoking Tobacco: Never Smokeless Tobacco: Never Alcohol Use Standard Drinks/Week Comments No 0 (1 standard drink = 0.6 oz pur e alcohol) Sex and Gender Information Value Date Recorded Sex Assigned at Not on file Gender Identity Not on file Sexual Orientation Not on file documented as of this encounter Progress Notes * Malia Paez MD - 03/26/2023 10:00 AM EDT Images from the original note were not included. DEPARTMENT OF DERMATOLOGY Medical Dermatology Clinic Provider: Malia Paez MD Patient's preferred name Laura Preferred contact method for results [x]Phone (Cell) [x]myD-H []Letter Detailed phone message OK? Yes Are there any other people with whom we may discuss your care? 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 Patient returns to clinic today for fullskin exam. -she reports intense itch on her back and upper extremeties Last visit at Dermatology: 05/14/2022 Last visit with this provider: Visit date not found Medications: Reviewed in eD-H Allergies: Reviewed in eD-H Skin Examination: Full skin examination: Patient asked to undress to their comfort level. Verbalized that the provider's preference is that patient remove all clothing and that the provider will not examine areas patient elects to keep covered. Examination of the scalp, hair, head, face, ears, neck, chest, axillae, abdomen, back, buttocks, and upper and lower extremities was normal with the exception of the findings below. Genitalia not examined. Assessment/Plan #. Benign Appearing Nevi - Multiple, medium-brown, evenly-pigmented macules and papules. All with regular pigment pattern on dermoscopy. No pigmented lesions suspicious for melanoma. - Benign. No treatment necessary. - Reassured about benign nature and natural history. #. Serrano Angiomas - Multiple bright red, well-demarcated papules - Benign. No treatment necessary. - Reassured about benign nature and natural history. #. Seborrheic Keratoses - Multiple brown papules/plaques with waxy stuck on appearance - Benign. No treatment necessary. - Reassured about benign nature and natural history. #. Solar Lentigines - Blotchy pigmentation and telangiectasia on sun-exposed skin with subtle yellowish cobblestoned appearance. - Benign. No treatment necessary. - Reassured about benign nature and natural history. - Sun avoidance, protective clothing and the use of SPF 30+ sunscreen is advised. Observe closely for skin changes and call if such occurs. #. Dermatitis: on the upper back in a sun-distributed pattern there are pink scaly ill-defined papules - Start Rx: Triamcinolone 0.1% Ointment Apply topically to areas of itch on the back and arms BID for 2 weeks take 1 week off and repeat as needed - Recommend sun protection - Recommend using Cerave Anti itch # History of recurrent Shingles: per patient report, recurrent vesicles on the arms - Recommend returning to clinic when lesions are active for consideration of viral culture RTC: 1 yr for FSE []Note routed to hospital secretary []Recall placed in scheduling system [x]Appointment scheduled at checkout Scribe attestation: Raisa Luis RN has performed the documentation for this encounter in the presence of and acting as a scribe for Malia Paez MD. I performed the above scribed service and agree with the accuracy of the documentation in this encounter. Reviewed and signed by: Malia Paez MD Dermatology [facility] documented in this encounter Plan of Treatment Upcoming Encounters Date Type Department Care Team (Late st Contact Info) Description 05/02/2024 1:45 PM EDT Office Visit Dermatology at [facility] [address] [place] [address] Chula Mondragon MD [facility] DR [address] [place] [address] documented as of this encounter Visit Diagnoses Diagnosis Solar lentigo Other dyschromia Seborrheic keratosis Other seborrheic keratosis Multiple benign nevi Benign neoplasm of skin, site unspecified Serrano angioma Nevus, non-neoplastic Dermatitis Contact dermatitis and other eczema, due to unspecified cause documented in this encounter Care Teams Canal Lock Tender Chief Operator Relationship Specialty Start Date End Date Bernie Jaime, FORESTRY FACULTY MEMBER [address] [place] [address] PCP - General Family Medicine 03/30/19 documented as of this encounter
--- OUTSIDE RECORDS SUMMARY | 2024-03-24 00:10 | XMS_ITS | Encounter Summary ---
Author Organization [facility] [place] [address] Care Team Providers Care Facility Maintenance Helper Name Role Phone Shelton Hernandez MD Primary Care Provider [phone] Reason for Visit * Reason Comments Skin Check * Consultation (Routine) - Closed Specialty Diagnoses / Procedures Referred By Syke bell Referred To Contact Dermatology Diagnoses fam hx of melanoma pt would like to see same provider as in the past Shelton Hernandez MD [address] [place] [address] Sulma Nixon PA [facility] DR JAGRUTI [place] [address] Referral ID Status Reason Start Date Expiration Date V isits Requested Visits Authorized [id number] Closed Consult, Test & Treat Connection Center PCP Updated and/or Approved 05/15/2016 05/15/2017 1 1 Encounter Details Date Type Department Care Team (Late st Contact Info) Description 07/08/2016 10:30 AM EST Office Visit Dermatology at [facility] [address] [place] [address] Cheri Sibley MD [facility] [place] [address] Sulma Nixon PA [facility] DR JAGRUTI [place] [address] Tinea corporis; Neoplasm of uncertain behavior of skin; Multiple benign nevi; Dermatofibroma; Postherpetic neuralgia; Family history of melanoma Social History Tobacco Use Types Packs/Day Years Used Date Smoking Tobacco: Never Alcohol Use Standard Drinks/Week Comments No 0 (1 standard drink = 0.6 oz pur e alcohol) Sex and Gender Information Value Date Recorded Sex Assigned at Not on file Gender Identity Not on file Sexual Orientation Not on file documented as of this encounter Patient Instructions * Patient Instructions* Fernie Joshi LPN - 07/08/2016 10:30 AM EST Treatment and Wound Care Instructions Your treatment today: You have had a shave biopsy of your skin, which is a removal of tissue for examination under a microscope. This wound will heal without stitches. Allow 3-6 weeks for the wound to heal. If bleeding occurs, hold firm pressure against the wound for 15 minutes. If bleeding continues, calls the office or go to your local emergency room. Please allow 1-2 weeks for the biopsy results to return. Your physician or nurse will contact you with the results by phone or letter; follow-up will be discussed at that time. Wound Care Instructions: You will need to keep the dressing placed over the wound dry and intact for 24 hours. Afterwards, perform the following wound care daily: ?? Wash your hands before changing the dressing. ?? Remove the bandage and clean the area with mild soap and water, then gently pat the area dry. ?? Apply a small amount of Vaseline to the area, then cover the wound with a band-aid. Change your dressing daily until the wound is fully healed. ?? A small amount of yellow drainage is part of normal healing. The area might appear as a small depression with redness around the edge of the wound. This is normal. ?? Please contact the office you you notice any of the following signs of infection: increased tenderness, pain, drainage, or redness that becomes hot or hard around the wound. If you have further questions or concerns, please call the office at [phone]. If it is after 5PM, or a holiday or weekend, please call [phone] and ask for the Tank Inspector on-call. documented in this encounter Progress Notes * Sulma Nixon PA - 07/08/2016 10:30 AM EST Images from the original note were not included. DERMATOLOGY - ESTABLISHED PATIENT CONSULT NOTE Date of service: 07/08/2016 Laura Mills : 1955 Dermatology Physician Car Cooper Note: Sulma Nixon PA-C (Bri) Chief Complaint Patient presents with ??? Skin Check Laura Mills is a 61 y.o. female. This is an established patient; last seen by myself on 11/14/14 for a full skin exam. Seen in consultation at the request of Shelton Hernandez specifically for the evaluation and management of the above problem. HPI: Ms. Mills is a 61 y.o. female who presents for a full skin exam. Areas of concern today include an asymptomatic red cheesh-na on the middle of her scar that has been present for the past month. Patient states that she has used OTC antibiotic cream, which she thinks made the cheesh-na get smaller, so she then tried using OTC Cortisone cream, but the lesion got larger again. She has also used Clobetasol; denies any use of anti-fungals. She is currently using the antibiotic cream again. There is also an intense itch on her left upper arm where she had shingles in 2012. Her PCP gave her Amitriptyline 10 mg for the postherpetic neuralgia a year ago, which was not effective. The dose was then increased to 25 mg, but that made her too drowsy so she is now only taking the 10 mg. She has also tried multiple OTC creams with ill effect. No personal history of skin cancer; however mother hasa history of melanoma as well as BCC and SCC. (Of note: Should Ms. Mills be in need of any Rx, her pharmacy requires that it be prescribed by her PCP) Past Skin History: History of extensive sun exposure 10/10/2007: Right lateral arm: Dermal nevus, with features of congenital onset, present at the base of the shave specimen; there is no atypia. History of shingles x 2 (February, on left arm and then June, on the right arm) Medical History: Patient Active Problem List Diagnosis Code ??? Family history of malignant melanoma Z80.8 ??? Seborrheic keratosis L82.1 ??? Solar lentigo L81.4 ??? Nevus D22.9 ??? Neurodermatitis L28.0 No Defibrillator/pacemaker No Anti-coagulants Medications: Current Outpatient Prescriptions Medication Sig Dispense Refill ??? amitriptyline (ELAVIL) 10 mg Tablet Take 10 mg by mouth nightly. ??? dextroamphetamine-amphetamine (ADDERALL XR) 30 mg Capsule, Sust. Release 24 hr Take 60 mg by mouth every morning. ??? FLUoxetine (PROZAC) 20 mg Tablet Take 20 mg by mouth every other day. ??? dzwcbv-netktkv-uhnyg-dasabuvir 12.5 mg-75 mg -50 mg/250 mg Tablets, Dose Pack Take 1 packet by mouth 2 times daily. (Patient not taking: Reported on 07/08/2016) 28 tablet 2 ??? montelukast (SINGULAIR) 10 mg Tablet Take 10 mg by mouth nightly. Reported on 07/08/2016 ??? buPROPion (WELLBUTRIN XL) 300 mg Tablet Sustained Release 24 hr Take 300 mg by mouth every morning. ??? CIS Free Text Med - Progesterone ??? Tretinoin, Emollient, (RENOVA) 0.02 % Crea 1 Appl(s), Top, QHS (Patient not taking: No sig reported) No current facility-administered medications for this visit. Allergies: Allergies Allergen Reactions ??? 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 Skin: A full skin examination was performed. This includes the head, neck, face and scalp includingbehind the ears. The chest, abdomen, back, and axillae, as well as the arms, hands, palms, fingers.Legs, feet, toes and soles were also examined. Buttocks, breasts, and genitalia were also examined with patient consent. Gerardo Skin Type: 2 Specific skin findings: 1. Right calloway: Firm papule, centrally raised and sclerotic, with peripheral hyperpigmentation and dimpling with lateral pressure. Photos taken (by Sulma Nixon PA-C (Bri)) with patient's verbal consent: 2. Left upper arm: Pruritus 3. Left upper arm: 2 mm blue/chavez papule with central white due on dermoscopy Photos taken (by Sulma Nixon PA-C (Bri)) with patient's verbal consent: 4. Lower abdomen: 3 cm pink annular plaque Photo taken (by Sulma Nixon PA-C (Bri)) with patient's verbal consent: 5. Scattered: Multiple, 0.3-0.5cm, medium-brown, evenly-pigmented macules and papules. All with regular pigment pattern on dermoscopy. No pigmented lesions suspicious for melanoma. Diagnosis/Assessment/Treatment Plan: 1. Dermatofibroma, stable - Patient reassured there has been no change since previous appointment - No treatment warranted. 2. Postherpetic neurologia - Would consider gabapentin. - Will forward note to PCP. She will call to schedule with him. 3. Blue nevus (new onset) - Discussed this condition with the patient and recommended a shave biopsy today. Patient is in agreement with this plan: Procedure: Skin biopsy by shave technique Location: Left upper arm - Discussed indications for procedure and expectations including risks and benefits. Verbal consentobtained. Skin prep with alcohol. Local anesthesia with 1% xylocaine, 1/100,000 epinephrine, 0.1 mEq/mL bicarbonate. A sample of the lesion was removed by shave technique to the level of the dermis and submitted to Pathology. Hemostasis obtained (AlCl and/or electrocautery). There were no complications; the pt. tolerated the procedure well. The wound was dressed. Post-procedure expectations, wound care and activity restrictions were reviewed. - Follow-up based on pathology results. 4. Tinea corporis - Etiology discussed Procedure: FRANK testing of the skin scraping was positive for fungal elements. - Recommend OTC anti-fungal cream (Lotrimin, clotrimazole) BID until clear and then for one more week. 5. Benign appearing nevi - Patient reassured - Encouraged patient to continue to monitor skin for changes and call if such occurs LOS: [id number] RTC pending pathology; otherwise in 1 year for full skin exam. Instructed to call with questions orconcerns. Patient verbally expressed understanding. I specifically asked the patient at the end of the visit if there were any further concerns or questions and the patient verbally stated there were no other concerns or questions. All questions were answered and all concerns were addressed. Patient notified that this note will be sent to referring provider. Note initiated by FERNIE JOSHI LPN I am documenting this encounter acting as the scribe for and in the presence of Sulma Nixon PA-C (Bri) I performed the above scribed service and agree with the accuracy of the documentation in this encounter. Reviewed and signed by Sulma Nixon PA-C (Bri) Dermatology [facility] Patient seen in conjunction with attending physician: Cheri Sibley MD Section of Dermatology [facility] A copy of this report has been sent to the referring provider either by electronic messaging or by fax. * Cheri Sibley MD - 07/08/2016 10:30 AM EST 3-4 mm chavez macule, favor blue nevus, but recommended biopsy given new onset Tinea with positive FRANK on abdomen, recommend topical antifungal as outlined Patient seen in conjunction with Sulma Nixon PA-C (Bri) Signed by: CHERI SIBLEY MD Section of Dermatology [facility] documented in this encounter Plan of Treatment Upcoming Encounters Date Type Department Care Team (Late Contact Info) Description 05/02/2024 1:45 PM EDT Office Visit Dermatology at [facility] [address] [place] [id number] Chula Mondragon MD [facility] DR JAGRUTI [place] [address] documented as of this encounter Procedures Procedure Name Priority Date/Time Associated Diagnosis Comments SPECIMEN TO PATHOLOGY (NON-OR) Routine 07/08/2016 11:32 AM EST Neoplasm of uncertain behavior of skin SURGICAL PATHOLOGY REPORT Routine 07/08/2016 11:32 AM EST documented in this encounter Results * Surgical Pathology Report (07/08/2016 11:32 AM EST) Final Diagnosis [id number] ?Location: [facility] The signing pathologist has (i) examined the relevant preparation(s) for the specimen(s) and (ii) rendered or confirmed the diagnosis(es). . 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 ??The blue nevus component has mild nuclear pleomorphism. No severe cytologic atypia or mitotic activity is identified. There is essentially no Ki-67/MelanA co-localization and no loss of p16 staining by immunohistochem istry. If this lesion were to repigment or otherwise show evidence of regrowth, then further clinical evaluation would be reasonable. ADDITIONAL STUDIES Multiple step-leveled sections are reviewed. CLINICAL INFORMATION Specimen Submitted: A - skin, Left upper arm, Skin shave biopsy (1) Clinical History: 2 mm blue/morris papule with central white hue on dermoscopy Clinical Diagnosis: Blue nevus (new onset) SPECIMEN PROCESSING A - Labeled/Fixativ e: Patient demographics, formalin. Quantity/Size: Single, 0.5 x 0.3 x 0.1 cm. Tissue Description: Shave of mcleod skin with a central 0.2 cm symmetrical, mcleod-brown macule. Sections/Proces sing: Inked and bisected to one edge of the macule. (T1) ??ejr 07/14/2016 3:49 PM EST [facility] SPECIMEN FROM SKIN / Unknown 07/08/2016 11:32 AM EST 07/08/2016 11:32 AM EST Sulma HOLM PATHOLOGY/CYTOLOGY ORDERABLES Performing Organization Address City/[facility]/ZIP Co de Phone Number [facility] [place] [phone] * Specimen to Pathology (NON-OR) (07/08/2016 11:32 AM EST) AP Specimen 07/08/2016 11:3 2 AM EST 07/08/2016 12:52 PM EST Narrative [facility] - 07/08/2016 12:52 PM EST Specimen requisition ordered. ??Separate Pathology report to follow Resulting Agency Comment Spec In Lab Cheri Sibley MD PATHOLOGY/CYTOLOGY ORDERABLES [facility] [place] [address] documented in this encounter Visit Diagnoses Diagnosis Tinea corporis Dermatophytosis of the body Neoplasm of uncertain behavior of skin Multiple benign nevi Benign neoplasm of skin, site unspecified Dermatofibroma Benign neoplasm of skin, site unspecified Postherpetic neuralgia Herpes zoster with other nervous system complications Family history of melanoma Family history of other specified malignant neoplasm documented in this encounter Care Teams Facility Maintenance Helper Relationship Specialty Start Date End Date Shelton Hernandez MD PCP - General 06/06/14 03/29/19 documented as of this encounter
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
--- OUTSIDE RECORDS SUMMARY | 2024-03-24 00:10 | XMS_ITS | Encounter Summary ---
Author Organization [facility] [place] [address] Care Team Providers Care Practical Nursing Teacher Name Role Phone JaimeBernie Ella GOMEZ Primary Care Provider + Reason for Visit * Reason Comments Skin Cancer Examination Encounter Details Date Type Department Care Team (Late st Contact Info) Description 05/19/2021 9:30 AM EDT Office Visit Dermatology at [facility] [address] [place] [address] Chula Mondragon MD [facility] DR J[place] [address] SK (seborrheic keratosis); Multiple benign nevi; Dermatofibroma; Nevus Social History Tobacco Use Types Packs/Day Years Used Date Smoking Tobacco: Never Smokeless Tobacco: Never Alcohol Use Standard Drinks/Week Comments No 0 (1 standard drink = 0.6 oz pur e alcohol) Sex and Gender Information Value Date Recorded Sex Assigned at Not on file Gender Identity Not on file Sexual Orientation Not on file documented as of this encounter Progress Notes * Chula Mondragon MD - 05/19/2021 9:30 AM EDT Images from the original note were not included. DEPARTMENT OF DERMATOLOGY Medical Dermatology Clinic Provider: CHULA MONDRAGON MD Patient's preferred name Laura Preferred contact [...] nevus with congenital features and blue nevus ?? 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 Genitalia not examined. Assessment/Plan A. Seborrheic Keratoses - Stuck-on, waxy papules on the trunk and extremities. - Discussed benign nature of lesions and provided reassurance. No treatment necessary at this time. B. Medium Density Benign Nevi - Scattered medium brown, evenly pigmented macules and papules on thetrunk and extremities with reassuring pigment pattern on dermoscopy. - Discussed benign nature of lesions and provided reassurance. Will continue to monitor. C. Dermatofibroma - 1.0 cm firm papule, centrally raised and sclerotic, with peripheral hyperpigmentation and dimpling with lateral pressure on the right calloway. - Discussed that these are benign fibrous (scar-like) lesions. No treatment necessary. D. Nevus - 0.4 cm evenly shaped, evenly pigmented macule on the mons pubis - Discussed benign nature of lesion and provided reassurance. No treatment necessary at this time.?? Other: ??? N/A RTC: 1 year for FSE []Note routed to datastage consultant [x]Recall placed in scheduling system []Appointment scheduled at checkout Scribe attestation: ADITYA Durant and Margaux Mercado have performed the documentation for thisencounter in the presence of and acting as a scribe for CHULA MONDRAGON MD. I performed the above scribed service and agree with the accuracy of the documentation in this encounter. Reviewed and signed by: CHULA MONDRAGON MD Dermatology [facility] documented in this encounter Plan of Treatment Upcoming Encounters Date Type Department Care Team (Late st Contact Info) Description 05/02/2024 1:45 PM EDT Office Visit Dermatology at [facility] [address] [place] [address] hCula Mondragon MD [facility] DR [place] [address] documented as of this encounter Visit Diagnoses Diagnosis SK (seborrheic keratosis) Other seborrheic keratosis Multiple benign nevi Benign neoplasm of skin, site unspecified Dermatofibroma Benign neoplasm of skin, site unspecified Nevus Benign neoplasm of skin, site unspecified documented in this encounter Care Teams Practical Nursing Teacher Relationship Specialty Start Date End Date Bernie Jaime, MANAGER CREDIT COLLECTIONS [address] [place] [address] PCP - General Family Medicine 03/30/19 documented as of this encounter
--- OUTSIDE RECORDS SUMMARY | 2024-03-24 00:10 | XMS_ITS | Encounter Summary ---
Author Organization [facility] [place] [address] Care Team Providers Care Nylon Winder Name Role Phone Shelton Hernandez MD Primary Care Provider [phone] Reason for Visit * Reason Comments Skin Check Encounter Details Date Type Department Care Team (Late st Contact Info) Description 01/24/2018 10:45 AM EDT Office Visit Dermatology at [facility] [address] [place] [address] Chula Mondragon MD [facility] [address] [place] [address] Dermatofibroma; Multiple benign nevi; SK (seborrheic keratosis) Social History Tobacco Use Types Packs/Day Years Used Date Smoking Tobacco: Never Alcohol Use Standard Drinks/Week Comments No 0 (1 standard drink = 0.6 oz pur e alcohol) Sex and Gender Information Value Date Recorded Sex Assigned at Not on file Gender Identity Not on file Sexual Orientation Not on file documented as of this encounter Progress Notes * Chula Mondragon MD - 01/24/2018 10:45 AM EDT DERMATOLOGY ESTABLISHED PATIENT CLINIC NOTE Date of service: 01/24/2018 Laura Naylor : 1955 Provider: Chula Mondragon MD Chief Complaint Patient presents with ??? 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 year old female. Established patient, new to me. Last seen by Sulma Nixon PA-C (Bri) on 07/08/16. Here today for a full skin examination. Patient denies any significant changes in her health since her last visit. She denies any new skin concerns today. ADR: Allergies Allergen Reactions ??? Propoxyphene Hcl MEDS: Current Outpatient Prescriptions Medication Sig Dispense Refill ??? amitriptyline (ELAVIL) 10 mg Tablet Take 10 mg by mouth nightly. ??? dextroamphetamine-amphetamine (ADDERALL XR) 30 mg Capsule, Sust. Release 24 hr Take 60 mg by mouth every morning. ??? FLUoxetine (PROZAC) 20 mg Tablet Take 20 mg by mouth every other day. ??? vnavkx-zhgelwk-gisxn-dasabuvir 12.5 mg-75 mg -50 mg/250 mg Tablets, [...] No current facility-administered medications for this visit. ROS General: feeling well Skin: denies other skin complaints EXAM General: NAD, pleasant, cooperative Skin: Patient was asked to disrobe to the level of their comfort. A total body skin exam was performed. This includes examination of the skin of the face, ears, neck, chest, axillae, left and right upper and lower extremities, hands, feet, abdomen, and back. Genitalia, buttocks and breasts were also examined with patient consent. Significant skin findings: A. Right García: 1 cm firm papule, centrally raised and sclerotic, with peripheral hyperpigmentation and dimpling with lateral pressure. B. Scattered: Multiple, 0.3-0.5cm, medium-brown, evenly-pigmented macules and papules. All with regular pigment pattern on dermoscopy. No pigmented lesions suspicious for melanoma. C. Right dorsal forearm: 0.4 cm waxy stuck on papule ASSESSMENT/PLAN: A. Dermatofibroma - Discussed benign nature of lesion and provided reassurance. No treatment necessary at this time. B. Benign appearing nevi - Patient reassured - Encouraged patient to continue to monitor skin for changes and call if such occurs C. Seborrheic Keratosis - Discussed benign nature of lesion and provided reassurance. No treatment necessary at this time. FOLLOW UP: 1 year for a full skin examination, sooner if needed. Reminder placed in the system to schedule. Instructed patient to call our clinic with any questions or concerns. I am documenting this encounter acting as the scribe for and in the presence of Dr. Mondragon.: REYES DING LPN I performed the above scribed service and agree with the accuracy of the documentation in this encounter. Chula Mondragon MD Section of Dermatology [facility] documented in this encounter Plan of Treatment Upcoming Encounters Date Type Department Care Team (Late st Contact Info) Description 05/02/2024 1:45 PM EDT Office Visit Dermatology at [address] [place] [address] Chula Mondragon MD [facility] [address] [place] [address] documented as of this encounter Visit Diagnoses Diagnosis Dermatofibroma Benign neoplasm of skin, site unspecified Multiple benign nevi Benign neoplasm of skin, site unspecified SK (seborrheic keratosis) Other seborrheic keratosis documented in this encounter Care Teams Nylon Winder Relationship Specialty Start Date End Date Shelton Hernandez MD PCP - General 06/06/14 03/29/19 documented as of this encounter
--- OUTSIDE RECORDS SUMMARY | 2024-03-24 00:10 | XMS_ITS | Encounter Summary ---
Author Organization [facility] [place] [address] Care Team Providers Care Sales And Service Associate Name Role Phone Shelton Hernandez MD Primary Care Provider [phone] Encounter Details Date Type Department Care Team (Late st Contact Info) Description 12/06/2014 Tele[place] [address] Nicolasa Alberto, RN Social History Tobacco Use Types Packs/Day Years Used Date Smoking Tobacco: Never Alcohol Use Standard Drinks/Week Comments No 0 (1 standard drink = 0.6 oz pur e alcohol) Sex and Gender Information Value Date Recorded Sex Assigned at Not on file Gender Identity Not on file Sexual Orientation Not on file documented as of this encounter Miscellaneous Notes * Telephone Encounter - Bere Quan MD - 12/07/2014 10:38 AM EDT I called the patient back. I advised that she not take all her herbal supplements during treatment. Ritonovir could prolong the effects of Vivance (amphetamine for ADHD) so she should watch for signsof hyperactivity, insomnia which would lead to reduction in dose of Vivance. I advised that she get labs monthly. 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 If for some reason treatment was not tolerated wecould wait for more treatments to become available. She will start medications tomorrow, 12/08. She should be seen in 4-8 weeks as we have not seen her since 06/2014. Bere Quan MD Section of Gastroenterology & Hepatology [address] [place] [id number] * Telephone Encounter - Nicolasa Alberto, RN - 12/06/2014 4:19 PM EDT Pt calls back to report she has received Viekira from [employer], Was not able to connect and speak with Josephine about switch from Harvoni to Viekira, nurses have triedto answer her questions on 2 occasions but she is requesting to speak with a provider here as well. (Insurance mandates she try Viekira if no SVR, may try Harvoni - see note on 10/29.) Will ask one of MD's to speak with her. Lab slips and letter mailed to pt today after she spoke with MD. Flores email sent to pt as well documented in this encounter Plan of Treatment Upcoming Encounters Date Type Department Care Team (Late st Contact Info) Description 05/02/2024 1:45 PM EDT Office Visit Dermatology at [facility] [address] [place] [address] Chula Mondragon MD [facility] DR [address] [place] [address] documented as of this encounter Visit Diagnoses Diagnosis Chronic hepatitis C without hepatic coma documented in this encounter Care Teams Sales And Service Associate Relationship Specialty Start Date End Date Shelton Hernandez MD PCP - General 06/06/14 03/29/19 documented as of this encounter
--- OUTSIDE RECORDS SUMMARY | 2024-03-24 00:10 | XMS_ITS | Encounter Summary ---
[facility] [place] [address] Care Team Providers Care Overseamer Name Role Phone Arutr Jurado MD Primary Care Provider Reason for Visit * Reason Comments Skin Check Encounter Details Date Type Department Care Team (Late st Contact Info) Description 08/20/2011 3:30 PM EST Office Visit Dermatology [address] [facility] [address] [place] [address] Bruno Colón MD [address] [facility] [place] [address] Family history of malignant melanoma (Primary Dx); Seborrheic keratosis; Solar lentigo; Nevus Social History Tobacco Use Types Packs/Day Years Used Date Smoking Tobacco: Never Sex and Gender Information Value Date Recorded Sex Assigned at Not on file Gender Identity Not on file Sexual Orientation Not on file documented as of this encounter Progress Notes * Bruno Colón MD - 08/20/2011 3:57 PM EST Problem: 1. Skin checkup. 2. Family history of malignant melanoma in a cousin who is brown eyed and dark complected. 3. History of nonmelanoma cutaneous malignancies in mother. 4. History of extensive sun exposure in [place], and she continues to enjoy laying out in the sun. Laura follows up and recently got back from a wonderful trip to [place]. She has been doing well. She would just like to have a general skin checkup in particular because of her mother's history of nonmelanoma skin cancer in later years. Physical examination reveals a tanned 56-year-old woman who has numerous lentigos and ephelides of the torso, upper and lower extremities. She has brown eyes and brown hair. She has a number of seborrheic keratoses present under both breasts. Examination of the head, neck, chest, back, hands, arms, forearms, thighs, calves, and feet including the soles and toe web spaces is otherwise unremarkable. Assessment & Plan: Benign mole examination. a. Patient reassured. b. Reinforced sun avoidance precautions. c. RTC p.r.n. for new lesions of concern. Family history of melanoma and nonmelanoma skin cancers. a. Patient is aware of the importance of sun avoidance precautions and will try to protect herself in the future. documented in this encounter Plan of Treatment Upcoming Encounters Date Type Department Care Team (Late st Contact Info) Description 05/02/2024 1:45 PM EDT Office Visit Dermatology at [address] [address] Chula Mondragon MD [facility] [address] [place] [address] documented as of this encounter Visit Diagnoses Diagnosis Family history of malignant melanoma- Primary Family history of other specified malignant neoplasm Seborrheic keratosis Other seborrheic keratosis Solar lentigo Other dyschromia Nevus Benign neoplasm of skin, site unspecified documented in this encounter Care Teams Overseamer Relationship Specialty Start Date End Date Artur Jurado MD [address] [place] [address] PCP - General 06/10/10 06/05/14 documented as of this encounter
--- OUTSIDE RECORDS SUMMARY | 2024-03-24 00:10 | XMS_ITS | Encounter Summary ---
Author Organization [facility] [place] [address] Care Team Providers Care Balance Wheel Arm Burnisher Name Role Phone JaimeBernie PATRICIA Primary Care Provider + Encounter Details Date Type Department Care Team (Late st Contact Info) Description 10/10/2007 Orders [place] [address] Ignacio Person MD DERMATOLOGY Social History Tobacco Use Types Packs/Day Years Used Date Smoking Tobacco: Never Assessed Sex and Gender Information Value Date Recorded Sex Assigned at Not on file Gender Identity Not on file Sexual Orientation Not on file documented as of this encounter Plan of Treatment Upcoming Encounters Date Type Department Care Team (Late st Contact Info) Description 05/02/2024 1:45 PM EDT Office Visit Dermatology at [facility] [address] [place] [address] Chula Mondragon MD [facility] [address] [place] [address] documented as of this encounter Procedures Procedure Name Priority Date/Time Associated Diagnosis Comments SURGICAL PATHOLOGY REPORT Routine 10/10/2007 5:06 PM EDT documented in this encounter Results * Surgical Pathology Report (10/10/2007 5:06 PM EDT) Surgical Pathology Report [id number] ? Location: 4M The signing pathologist has (i) examined the relevant preparation(s) for the specimen(s) and (ii) rendered or confirmed the diagnosis(es). . ?Pathology Surgical Pathology Final Report Clinical Information Specimen Submitted: A - Right lateral arm: ??Shave 2 Clinical History: Skin, papule Clinical Diagnosis: R/O irritated nevus Gross Description Labeled/Fixativ e: ? Labeled with the patient's name, formalin. Qty/Size/Weight : ?Single papule, 0.6 x 0.3 cm. Received in the same ?container is a 0.6 x 0.2-cm, mcleod skin shave. Sections/Proces sing: ??Papule is inked and bisected. ??(T1) ? jlk/SNS Microscopic Description Slides reviewed, microscopic description not recorded. Diagnosis Skin, right lateral arm, shave: ?? Dermal nevus, with features of congenital onset, present at the base of the shave specimen; there is no atypia. CR-0 10/12/07 JLK 10/12/07 Verified by: ? Clara Singh MD ?Dermatopathol ogist ?(Electronic Signature) The attending pathologist whose signature appears on this report has reviewed all diagnostic slides and has edited the gross and/or microscopic portion of the report in rendering the final pathologic diagnosis. [facility] 10/10/2007 5:06 PM EDT Ignacio Person MD PATHOLOGY/CYTOLOGY O RDERABLES [facility] documented in this encounter Visit Diagnoses Not on filedocumented in this encounter Care Teams Balance Wheel Arm Burnisher Relationship Specialty Start Date End Date Bernie Jaime, RECORDS MANAGEMENT ANALYST [address] [place] [address] PCP - General Family Medicine 03/30/19 documented as of this encounter
--- OUTSIDE RECORDS SUMMARY | 2024-03-24 00:10 | XMS_ITS | Encounter Summary ---
Author Organization [facility] [place] [address] Care Team Providers Care Executive Casino Host Name Role Phone JaimeBernie PATRICIA Primary Care Provider + Reason for Visit * Reason Comments Medication Refill Encounter Details Date Type Department Care Team (Late st Contact Info) Description 02/03/2023 Refill Dermatology at [facility] [address] [place] [address] Olya Grimes MD [facility] [place] [address] Social History Tobacco Use Types Packs/Day Years [...] encounter Miscellaneous Notes * Telephone Encounter - Nalini Tomlinson - 02/09/2023 2:55 PM EDT Pateient scheduled for March can we get this filled? Patient calling for update. documented in this encounter Plan of Treatment Upcoming Encounters Date Type Department Care Team (Late st Contact Info) Description 05/02/2024 1:45 PM EDT Office Visit Dermatology at [facility] [address] [place] [address] Chula Mondragon MD [facility] [address] [place] [address] documented as of this encounter Visit Diagnoses Not on filedocumented in this encounter Care Teams Executive Casino Host Relationship Specialty Start Date End Date Bernie Jaime, PATRICIA [address] [place] [address] PCP - General Family Medicine 03/30/19 documented as of this encounter
--- OUTSIDE RECORDS SUMMARY | 2024-03-24 00:10 | XMS_ITS | Encounter Summary ---
Author Organization [facility] [place] [address] Care Team Providers Care Extension Service Supervisor Name Role Phone Addison Bernie Jaramillo APRN Primary Care Provider + Encounter Details Date Type Department Care Team (Late st Contact Info) Description 05/21/2022 Telephone Dermatology at [facility] [address] [place] [address] Bri Maria MD [facility] [address] [place] [address] Social History Tobacco Use Types Packs/Day Years [...] encounter Miscellaneous Notes * Telephone Encounter - Yun Claros LPN - 05/24/2022 7:26 PM EST Message sent to the pt through the portal. * Telephone Encounter - Malia Umana - 05/21/2022 2:[address] Maria, this is a patient of Dr. Mondragon's who you saw in clinic on 05/14/22. Patient called to request a prescription she can apply to her arms. She mentioned she suspects her shingles is flaringbut I don't see any notes on Shingles even on previous Dr. Mondragon notes. Lisa - can you please reach out to Laura to discuss Dr. Maria's suggestions? Patient wanted me to have Dr. Maria's nurse reach out to her. [phone] Hollie Echevarria documented in this encounter Plan of Treatment Upcoming Encounters Date Type Department Care Team (Late st Contact Info) Description 05/02/2024 1:45 PM EDT Office Visit Dermatology at [facility] [address] [place] [address] Chula Mondragon MD [facility] [address] [place] [address] documented as of this encounter Visit Diagnoses Not on filedocumented in this encounter Care Teams Extension Service Supervisor Relationship Specialty Start Date End Date Bernie Jaime, PATRICIA [address] [place] [address] PCP - General Family Medicine 03/30/19 documented as of this encounter
--- OUTSIDE RECORDS SUMMARY | 2024-03-24 00:10 | XMS_ITS | Encounter Summary ---
Author Organization [facility] [place] [address] Care Team Providers Care Treatment Manager Name Role Phone Shelton Hernandez MD Primary Care Provider [phone] Encounter Details Date Type Department Care Team (Late st Contact Info) Description 11/15/2014 Orders [place] [address] Rina Braun APRN [facility] [place] [address] Social History Tobacco Use Types Packs/Day Years [...] 1:45 PM EDT Office Visit Dermatology at [facility] [address] [place] [address] Chula Mondragon MD [facility] [address] [address] documented as of this encounter Visit Diagnoses Not on filedocumented in this encounter Care Teams Treatment Manager Relationship Specialty Start Date End Date Shelton Hernandez MD PCP - General 06/06/14 03/29/19 documented as of this encounter
--- OUTSIDE RECORDS SUMMARY | 2024-03-24 00:10 | XMS_ITS | Encounter Summary ---
Author Organization [facility] [place] [address] Care Team Providers Care Capital Campaign Fundraiser Name Role Phone Shelton Hernandez MD Primary Care Provider [phone] Encounter Details Date Type Department Care Team (Late st Contact Info) Description 10/29/2014 Notes [place] [address] Denise Godoy, RN Social History Tobacco Use Types Packs/Day Years Used Date Smoking Tobacco: Never Alcohol Use Standard Drinks/Week Comments No 0 (1 standard drink = 0.6 oz pur e alcohol) Sex and Gender Information Value Date Recorded Sex Assigned at Not on file Gender Identity Not on file Sexual Orientation Not on file documented as of this encounter Progress Notes * Denise Godoy, RN - 10/29/2014 4:53 PM EDT [employer] has denied Ms. Mills. They stated the preferred product is Viekira. If the patient starts Viekira and fails to show a sustain viralogical response to the therapy, then Harvoni can then be considered. The insurance stated you can either submit a new request for Viekira, or you can appeal the determination form [employer]. ATTN: Clinical Appeals Dept. [employer] [address] [address] [place] [address] Case# [id number] documented in this encounter Plan of Treatment Upcoming Encounters Date Type Department Care Team (Late st Contact Info) Description 05/02/2024 1:45 PM EDT Office Visit Dermatology at [facility] [address] [place] [address] Chula Mondragon MD [facility] [address] [place] [address] documented as of this encounter Visit Diagnoses Not on filedocumented in this encounter Care Teams Capital Campaign Fundraiser Relationship Specialty Start Date End Date Shelton Hernandez MD PCP - General 06/06/14 03/29/19 documented as of this encounter
--- OUTSIDE RECORDS SUMMARY | 2024-03-24 00:10 | XMS_ITS | Encounter Summary ---
Author Organization [facility] [place] [address] Care Team Providers Care Concessions Manager Name Role Phone Eugenie Guzmán MD Primary Care Provider Reason for Visit * Reason Comments Hepatitis C Encounter Details Date Type Department Care Team (Late st Contact Info) Description 07/04/2014 2:30 PM EST Office Visit [place] [id number] Rina Braun, [facility] [place] [address] Chronic hepatitis C Discharge Disposition: Home Social History Tobacco Use [...] Sign Reading Time Taken Comments Blood Pressure 123/77 07/04/2014 2:18 PM EST Pulse 90 07/04/2014 2:18 PM EST Temperature - - Respiratory Rate 20 07/04/2014 2:18 PM EST Oxygen Saturation - - Inhaled Oxygen Concentration - - Weight 54 kg (119 lb) 07/04/2014 2:18 PM EST Height 154.9 cm (5' 1) 07/04/2014 2:18 PM EST Body Mass Index 22.48 07/04/2014 2:18 PM EST documented in this encounter Progress Notes * Rina Braun APRN - 07/04/2014 2:20 PM EST Patient: Laura Mills : 1955 Provider: Rina Braun APRN Referring Physician: EUGENIE GUZMÁN MD Laura Mills is referred by EUGENIE GUZMÁN MD for further evaluation and management of Hepatitis C. Laura Mills is a 59 y.o. female with Hepatitis C, unknown genotype initially diagnosed in 1993 or 1994. He was diagnosed with acute Hepatitis A when she was 14 and she became jaundice, she denies IVDu or other risk factors prior to this. She took herbs in 1994 and she reports that her viral load was undetected in 2004, she continues on the herbs but now has a positive viral load. She did have a liver biopsy many years ago and was told it was good. She never took interferon. She denies all risk factors for viral hepatitis, she does not think her mother is infected. It is not clear when or how she developed HCV. . She denies any history of GI bleeding, ascites, edema, encephalopathy or muscle mass loss. She has a history of drinking daily 1-3 glasses of wine for many years, maybe 30 years but quit altogether in September of 2011. Liver Biopsy: 1994 At [facility] results not known Date: Stage: Grade: Fibroscan Results: 07/04/2014 Mean: 5.9 kPa Mean IQR: 29 % Success rate: 100 % Predicted fibrosis stage: F0- F1 Outside Studies: 05/28/14 hgA1c 5.8% Trig 34, LDL 58, HDL 78 tprot 7.5, alb 3.7, ast 89, alt 168, tbili 0.27, ap 94 Hep C RNA 694, 980 iu PROBLEM LIST Patient Active Problem List Diagnosis Code ??? Family history of malignant melanoma V16.8 ??? Seborrheic keratosis 702.19 ??? Solar lentigo 709.09 ??? Nevus 216.9 ??? Neurodermatitis 698.3 MEDICATIONS: Outpatient Prescriptions Marked as Taking for the 07/04/14 encounter (Office Visit) with Rina Braun APRN Medication Sig Dispense Refill ??? montelukast (SINGULAIR) 10 mg Tablet Take 10 mg by mouth nightly. ??? buPROPion (WELLBUTRIN XL) 300 mg Tablet Sustained Release 24 hr Take 300 mg by mouth every morning. ??? Lisdexamfetamine 60 mg Capsule Take by mouth. ??? CIS Free Text Med - Progesterone ??? ESTRADIOL ORAL No Facility-Administered Medications for the 07/04/14 encounter (Office Visit) with Rina Braun APRN. ALLERGIES/ADR Allergies Allergen Reactions ??? Propoxyphene Hcl Past Medical History Diagnosis Date ??? Depression ??? ADD (attention deficit disorder) ??? Seasonal allergies Past Surgical History Procedure Laterality Date ??? Hysterectomy ??? section ??? Ovarian cyst removal Family History Problem Relation Age of Onset ??? Breast Cancer Mother ??? Hypertension Sister ??? Thyroid Disease Sister History Social History ??? Marital Status: Spouse Name: N/A Number of Children: N/A ??? Years of Education: N/A Occupational History ??? Not on file. Social History Main Topics ??? Smoking status: Never Smoker ??? Smokeless tobacco: Not on file ??? Alcohol Use: No ??? Drug Use: No ??? Sexual Activity: Not on file Other Topics Concern ??? Blood Transfusions No ??? 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 HENT: Positive for hearing loss and postnasal drip. Eyes: Negative. Respiratory: Negative for cough, shortness of breath and wheezing. Cardiovascular: Negative for chest pain, palpitations and leg swelling. Gastrointestinal: Negative for nausea, vomiting, diarrhea and blood in stool. Genitourinary: Negative for dysuria and hematuria. Musculoskeletal: Negative for myalgias and back pain. Skin: Negative for rash. Neurological: Negative for light-headedness and headaches. Hematological: Negative for adenopathy. Does not bruise/bleed easily. Psychiatric/Behavioral: Positive for dysphoric mood. Negative for self-injury. PHYSICAL EXAMINATION: Filed Vitals: 07/04/14 1418 BP: 123/77 Pulse: 90 Resp: 20 Height: 154.9 cm (5' 1) Weight: 53.978 kg (119 lb) Body mass index is 22.5 kg/(m^2). Physical Exam Constitutional: She is oriented to person, place, and time. She appears well- developed and well-nourished. HENT: Head: Normocephalic and atraumatic. Eyes: Pupils are equal, round, and reactive to light. No scleral icterus. Neck: No thyromegaly present. Cardiovascular: Normal rate, regular rhythm and normal heart sounds. No murmur heard. Pulmonary/Chest: Effort normal. She has no wheezes. Abdominal: Soft. She exhibits no ascites and no mass. There is no hepatosplenomegaly. There is no tenderness. Musculoskeletal: She exhibits no edema. Neurological: She is alert and oriented to person, place, and time. Skin: Skin is warm and dry. Psychiatric: She has a normal mood and affect. Her behavior is normal. IMPRESSION/PLAN: Laura Mills is a 59 y.o. female with Hepatitis C, Genotype 1, she is naive to treatment. She has significantly elevated liver tests indicating active inflammation however she has mild disease based on fibroscan performed today in the office. Will get labs today and proceed with insurance authorization for Harvoni once daily for 12 weeks. Her insurance company is changing in the next few weeks and she will contact us with the new information. Rina Braun APRN Section of Gastroenterology [place] [address] documented in this encounter Miscellaneous Notes * Addendum Note - Gustavo Dominguez - 07/04/2014 3:14 PM ESTAddended by: GUSTAVO DOMINGUEZ on: 07/04/2014 03:14 PM Modules accepted: Orders documented in this encounter Plan of Treatment Upcoming Encounters Date Type Department Care Team (Late st Contact Info) Description 05/02/2024 1:45 PM EDT Office Visit Dermatology at [facility] [address] [place] [address] Chula Mondragon MD [facility] DR [place] [address] documented as of this encounter Procedures Procedure Name Priority Date/Time Associated Diagnosis Comments HCV GENOTYPE Routine 07/04/2014 3:32 PM EST Chronic hepatitis C HEMOGRAM Routine 07/04/2014 3:32 PM EST Chronic hepatitis C DIFFERENTIAL, AUTOMATED Routine 07/04/2014 3:32 PM EST Chronic hepatitis C HEPATITIS C GENOTYPE Routine 07/04/2014 3:32 PM EST Chronic hepatitis C CBC (WITH DIFF) Routine 07/04/2014 3:32 PM EST Chronic hepatitis C documented in this encounter Results * HCV Genotype (07/04/2014 3:32 PM EST) HCV Genotype Indication for study Hepatitis C Infection Result 1b Interpretation: The genotyping analysis has identified the presence of HCV genotype ??1b in the submitted specimen. ??In the [place], the most common HCV genotypes are 1a and 1b, followed by genotypes 2 and 3. Genotypes 2 and 3 have better therapeutic response rates (80%) than genotypes 1 and 4 (45%) to current standard therapy (ribavirin plus pegylated interferon alpha-2a or alpha-2b). Response rate of genotype 5 appears to be similar to those of genotypes 2 and 3 whereas genotype 6 may be at an intermediate level between genotype 1 and genotypes 2 or 3. Analysis: Identification of HCV genotype was carried out using The [employer] Scholar-8 detection system. Method: Plasma was initially subjected to quantitative RT-PCR using the Yasir ABHILASH Ampliprep/ABHILASH Taqman HCV assay. The HCV genotyping was carried out using [employer] XT-8 detection system that targets 5? -untranslated region of the HCV genome. The amplicon from the Yasir assay served as a template for the nested PCR followed by a direct analysis on the Mobilitie-8 detection system for the identification of HCV genotypes. The genotypes/subtypes detected by this method include 1a, 1b, 2a/c, 2b, 3, 4, 5 and 6a/b. This test was validated and its performance characteristics determined by the Molecular Pathology Laboratory at [facility]. It has not been cleared or approved by the FDA. This laboratory is regulated under CLIA as qualified to perform high-complexity testing. This test is used for clinical purposes. It should not be regarded as investigational or for research. References: Triston RM, Ishan DJ, Faby R, Paulina SD. Evolving epidemiology of hepatitis C virus in the [place]. Clin Infect Dis. 2012; 55:S3-9. Rachell F, Raj Causey. Treating hepatitis C: current standard of care and emerging direct-acting antiviral agents. J Viral Hepat. 2012; 19:449-64. Tia MH, Imani TERAN. Prevalence and treatment of hepatitis C virus genotypes 4, 5, and 6. Clin Gastroenterol Hepatol. 2005; 3:S40-N583. Nils JS, Kirti E, Princess D, Abdias AJ, Elen ME. Current and emerging antiviral treatments for hepatitis C infection. Br J Clin Pharmacol. 2012 Feb 13. [Epub ahead of print] CERNER MILLENNIUM Comment: [VERIFIED DATE]07.23.14 Verified By:Denise Zaidi (Electronic Signature) Blood specimen (specimen) 07/04/2014 3:32 PM EST 07/05/2014 11:34 AM EST Narrative Resulting Agency Comment Spec In Lab Liu Andrew MD HEMATOLOGY ORDERABL ES CERNER MILLENNIUM * Differential, Automated (07/04/2014 3:32 PM EST) Neutrophil % 45.2 % CERNER MILLENNIUM Neutrophil Absolute 3.36 1.50 - 6.30 x10(3)/mcL CERNER MILLENNIUM Lymph % 42.5 % CERNER MILLENNIUM Lymphocytes Abs 3.2 1.0 - 3.6 x10(3)/mcL CERNER MILLENNIUM Monocyte % 10.0 % CERNER MILLENNIUM Monocyte Abs 0.7 0.2 - 1.0 x10(3)/mcL CERNER MILLENNIUM Eos % 1.6 % CERNER MILLENNIUM Eosinophils Abs 0.1 0.0 - 0.5 x10(3)/mcL CERNER MILLENNIUM Basophil % 0.4 % CERNER MILLENNIUM Baso Absolute 0.0 0.0 - 0.2 x10(3)/mcL CERNER MILLENNIUM Immature Gran % 0.30 % CERN ER MILLENNIUM Comment: Immature granulocytes(IG's)percentage and absolute count will include metamyelocytes, myelocytes, and promyelocytes. Blood smears from CBCs yielding IG's will be scanned manually for concordance. If this scan disagrees with the automated IG or if promyelocytes are noted, a manual differential will be performed. Immature Gran Absolute 0.02 0.00 - 0.05 x10(3)/mcL CERNER MILLENNIUM Blood specimen (specimen) 07/04/2014 3:32 PM EST 07/04/2014 3:35 PM EST Narrative Resulting Agency Comment Spec In Lab Liu Andrew MD HEMATOLOGY ORDERABL ES CERNER MILLENNIUM * Hemogram (07/04/2014 3:32 PM EST) White Blood Cell 7.4 4.0 - 10.0 x10(3)/mcL CERNER MILLENNIUM Red Blood Cell 4.34 3.93 - 5.22 x10(6)/mcL CERNER MILLENNIUM Hemoglobin 13.6 11.2 - 15.7 gm/dL CERNER MILLENNIUM Hematocrit 40.7 34.0 - 45.0 % CERNER MILLENNIUM Mean Cell Volume 93.8 79.0 - 94.0 fL CERNER MILLENNIUM Mean Cell Hemoglobin 31.3 26.6 - 32.2 pg CERNER MILLENNIUM Mean Cell Hemoglobin Concentration 33.4 32.0 - 36.5 gm/dL CERNER MILLENNIUM Platelet 246 145 - 370 x10(3)/mcL CERNER MILLENNIUM RDW Standard Deviation 44.5 35.0 - 46.0 fL CERNER MILLENNIUM RDW coefficient of variation 13.0 10.9 - 14.4 % CERNER MILLENNIUM Mean Platelet Volume 11.1 9.0 - 12.0 fL CERNER MILLENNIUM Blood specimen (specimen) 07/04/2014 3:32 PM EST 07/04/2014 3:35 PM EST Narrative Resulting Agency Comment Spec In Lab Liu Andrew MD HEMATOLOGY ORDERABL ES [facility] documented in this encounter Visit Diagnoses Diagnosis Chronic hepatitis C Chronic hepatitis C without mention of hepatic coma documented in this encounter Care Teams Concessions Manager Relationship Specialty Start Date End Date Eugenie Guzmán MD PCP - General 06/06/14 03/29/19 documented as of this encounter
--- OUTSIDE RECORDS SUMMARY | 2024-03-24 00:10 | XMS_ITS | Encounter Summary ---
Author Organization [facility] [place] [address] Care Team Providers Care Supervisor Silvering Department Name Role Phone JaimeBernie Ella GOMEZ Primary Care Provider + Reason for Visit * Reason Comments Skin Cancer Examination Encounter Details Date Type Department Care Team (Late st Contact Info) Description 04/08/2020 10:45 AM EDT Office Visit Dermatology at [facility] [address] [place] [address] Chula Mondragon MD [facility] [address] [place] [address] SK (seborrheic keratosis); Multiple benign nevi; Nevus; Dermatofibroma Social History Tobacco Use Types Packs/Day Years [...] Progress Notes * Chula Mondragon MD - 04/08/2020 10:45 AM EDT DERMATOLOGY ESTABLISHED PATIENT CLINIC NOTE Date of Service: 04/08/2020 Laura Dickson : 1955 Provider: Chula Mondragon MD Chief Complaint Patient presents with ??? 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 female, established patient last seen by me on 03/30/2019. Here today for a 1-year full skin exam with the following concerns: - Patient denies any specific skin concerns today; no lesions that are new, changing or symptomatic. Last FSE: 03/30/19 MEDS Current Outpatient Medications Medication Sig Dispense Refill ??? atorvastatin (LIPITOR) 10 mg Tablet Take 10 mg by mouth daily. ??? gabapentin (NEURONTIN) 300 mg Capsule Take 300 mg by mouth daily. ??? dextroamphetamine-amphetamine (ADDERALL XR) 30 mg Capsule, Sust. Release 24 hr Take 60 mg by mouth every morning. ??? buPROPion (WELLBUTRIN XL) 300 mg Tablet Sustained Release 24 hr Take 300 mg by mouth every morning. ??? CIS Free Text Med - Progesterone (Patient not taking: No sig reported) No current facility-administered medications for this visit. ADR Allergies Allergen Reactions ??? Propoxyphene Hcl ROS General: Feeling well Skin: Denies other skin complaints EXAM General: NAD, pleasant, cooperative Skin: Patient was asked to undress to the level of her comfort. Verbalized that the provider's preference is for the patient to remove all clothing and that the provider will not examine areas patient elects to keep covered. Patient's decision was to remove bra and underwear for a total body skin exam. This includes examination of the scalp, hair, face, ears, neck, chest, breasts, abdomen, back, axillae, upper and lower extremities, hands, and feet. Buttocks and genitalia were examined with patient's consent. Areas of face under mask examined (COVID-19): [] Yes [x] No Significant Skin Findings: A. Trunk and extremities: Brown papules/plaques with waxy, stuck-on appearance. B. Trunk and extremities: Multiple 0.3-0.5 cm medium-brown, evenly-pigmented macules and papules. All with regular pigment pattern on dermoscopy. No pigmented lesions suspicious for melanoma. C. Mons pubis: 0.4 cm evenly shaped, evenly pigmented macule. D. Left thigh: Approximately 1cm firm papule, centrally raised and sclerotic, with peripheral hyperpigmentation and dimpling with lateral pressure. ASSESSMENT/PLAN A. Seborrheic Keratoses - Etiology discussed. - Patient reassured that benign in nature. B. Low Density of Benign-Appearing Nevi - No atypical lesions or features worrisome for malignancy. - Advised patient to watch for anything new or changing. Discussed changes (bleeding, pain, change in color or shape) that should prompt re-evaluation.?? - Will continue to monitor. C. Nevus - Discussed benign nature of lesion and provided reassurance. No treatment necessary at this time. D. Dermatofibroma - Discussed benign nature of lesion and provided reassurance. No treatment necessary. Follow Up: RTC in 1 year for: [x] FSE [] Follow up [x] Reminder placed in system [] Appointment scheduled before exiting Note initiated by: ADITYA Durant I am documenting this encounter acting as the scribe for and in the presence of Dr. Mondragon: Meenu Reyes I performed the above scribed service and agree with the accuracy of the documentation in this encounter. Chula Mondragon MD Department of Dermatology [facility] cc: Bernie Jaime APRN documented in this encounter Plan of Treatment Upcoming Encounters Date Type Department Care Team (Late st Contact Info) Description 05/02/2024 1:45 PM EDT Office Visit Dermatology at [facility] [address] [place] [address] Chula Mondragon MD [facility] DR [address] [place] [address] documented as of this encounter Visit Diagnoses Diagnosis SK (seborrheic keratosis) Other seborrheic keratosis Multiple benign nevi Benign neoplasm of skin, site unspecified Nevus Benign neoplasm of skin, site unspecified Dermatofibroma Benign neoplasm of skin, site unspecified documented in this encounter Care Teams Supervisor Silvering Department Relationship Specialty Start Date End Date Bernie Jaime, HYGIENE COORDINATOR [address] [place] [address] PCP - General Family Medicine 03/30/19 documented as of this encounter
--- OUTSIDE RECORDS SUMMARY | 2024-03-24 00:10 | XMS_ITS | Encounter Summary ---
[facility] [place] [address] Care Team Providers Care Hearing Screen Coordinator Name Role Phone Shelton Hernandez MD Primary Care Provider Encounter Details Date Type Department Care Team (Late st Contact Info) Description 08/21/2014 Notes [place] [address] Denise Godoy RN Social History Tobacco Use [...] Progress Notes * Denise Godoy RN - 08/21/2014 9:25 AM EST Per contact at [employer]: We are in the process of reaching Ms. Mills regarding her new insurance info. The info provided with her original rx termed 07/19. We???ll get to work on a PA as soon as she callsus back. documented in this encounter Plan of Treatment Upcoming Encounters Date Type Department Care Team (Late st Contact Info) Description 05/02/2024 1:45 PM EDT Office Visit Dermatology at [address] [place] [address] Chula Mondragon MD [facility] DR [address]AGRUT[address] [place] [address] documented as of this encounter Visit Diagnoses Not on filedocumented in this encounter Care Teams Hearing Screen Coordinator Relationship Specialty Start Date End Date Shelton Hernandez MD PCP - General 06/06/14 03/29/19 documented as of this encounter
--- OUTSIDE RECORDS SUMMARY | 2024-03-24 00:10 | XMS_ITS | Encounter Summary ---
Author Organization [facility] [place] [address] Care Team Providers Care Regulatory Affairs Internship Name Role Phone JaimeBernie Ella GOMEZ Primary Care Provider + Reason for Visit * Reason Comments Skin Check Encounter Details Date Type Department Care Team (Late st Contact Info) Description 05/14/2022 1:15 PM EDT Office Visit Dermatology at [facility] [address] [place] [address] Karla Hutson MD [facility] [address] [place] [address] Solar lentigo; Multiple benign nevi; Seborrheic keratosis; Serrano angioma Social History Tobacco Use Types Packs/Day Years Used Date Smoking Tobacco: Never Smokeless Tobacco: Never Alcohol Use Standard Drinks/Week Comments No 0 (1 standard drink = 0.6 oz pur e alcohol) Sex and Gender Information Value Date Recorded Sex Assigned at Not on file Gender Identity Not on file Sexual Orientation Not on file documented as of this encounter Progress Notes * Karla Hutson MD - 05/14/2022 1:15 PM EDT Images from the original note were not included. DEPARTMENT OF DERMATOLOGY Medical Dermatology Clinic Provider: KARLA HUTSON MD Patient's preferred name Laura Preferred contact method for results [x]?Phone (Cell) [x]?myD-H []?Letter Detailed phone message OK? Yes Are there any other people with whom we may discuss your care? (Don) ?? 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 Pre-Procedure Questions Details Allergy to lidocaine, epinephrine, Dermabond, chlorhexidine, or adhesives No Bleeding disorder or blood thinners Yes: ASA 81 mg Pacemaker, defibrillator, deep brain stimulator, cochlear implant No History of Present Illness: Laura Forman is a 67 y.o. Patient returns to clinic today for a full skin exam and she reports no spots of concern. Last visit at Dermatology: 05/19/2021 Last visit with this provider: Visit date [...] Genitalia not examined. Assessment/Plan A. Seborrheic Keratoses -Multiple 0.4-1 cm, brown-black papules/plaques with waxy stuck on appearance - Benign. No treatment necessary. - Reassured about benign nature and natural history. B. Benign Appearing Nevi -Multiple, 0.3-0.5cm, medium-brown, evenly-pigmented macules and papules. All with regular pigment pattern on dermoscopy. No pigmented lesions suspicious for melanoma. - Benign. No treatment necessary. - Reassured about benign nature and natural history. C. Serrano Angiomas -Multiple 0.2-0.4cm bright red, well-demarcated papules - Benign. No treatment necessary. - Reassured about benign nature and natural history. D. Solar Lentigines -Blotchy pigmentation and telangiectasia on sun-exposed skin with subtle yellowish cobblestoned appearance. - Benign. No treatment necessary. - Reassured about benign nature and natural history. - Sun avoidance, protective clothing and the use of SPF 30+ sunscreen is advised. Observe closely for skin changes and call if such occurs. Other: ??? N/A RTC: 1 yr for FSE []Note routed to medical assistant secretary [x]Recall placed in scheduling system []Appointment scheduled at checkout Scribe attestation: Raisa Luis LPN has performed the documentation for this encounter in thepresence of and acting as a scribe for KARLA HUTSON MD. I performed the above scribed service and agree with the accuracy of the documentation in this encounter. Reviewed and signed by: KARLA HUTSON MD Dermatology [facility] documented in this encounter Plan of Treatment Upcoming Encounters Date Type Department Care Team (Late st Contact Info) Description 05/02/2024 1:45 PM EDT Office Visit Dermatology at [place] [address] [place] [address] Chula Mondragon MD [facility] DR [place] [address] documented as of this encounter Visit Diagnoses Diagnosis Solar lentigo Other dyschromia Multiple benign nevi Benign neoplasm of skin, site unspecified Seborrheic keratosis Other seborrheic keratosis Serrano angioma Nevus, non-neoplastic documented in this encounter Care Teams Regulatory Affairs Internship Relationship Specialty Start Date End Date Bernie Jaime, FORENSIC SCIENCE TECHNICIAN [address] [place] [address] PCP - General Family Medicine 03/30/19 documented as of this encounter
--- OUTSIDE RECORDS SUMMARY | 2024-03-24 00:10 | XMS_ITS | Encounter Summary ---
Author Organization Formerly [facility] [place] [address] Care Team Providers Care Rehab Therapy Manager Name Role Phone Shelton Hernandez MD Primary Care Provider Reason for Visit * Reason Comments Skin Check Encounter Details Date Type Department Care Team (Late st Contact Info) Description 11/14/2014 10:00 AM EDT Office Visit Dermatology at [facility] [address] [place] [address] Sulma Nixon PA [facility] [address] [address] Chula Mondragon MD [facility] [address] [address] Lentigines; Dermatofibroma Discharge Disposition: Home Social History Tobacco Use [...] Progress Notes * Chula Mondragon MD - 11/14/2014 2:35 PM EDT Benign lentigenes on exam of back. Patient seen in conjunction with Sulma Nixon PA-C (Bri) Signed by: Chula Mondragon MD Section of Dermatology [facility] * Sulma Nixon PA - 11/14/2014 10:16 AM EDT DERMATOLOGY - ESTABLISHED PATIENT CLINIC NOTE Date of service: 11/14/2014 Laura Mills : 1955 Dermatology Physician Manager Universal Note: Sulma Nixon PA-C (Bri) Chief Complaint Patient presents with ??? Skin Check This is an established patient, last seen by Dr. Colón on 07/06/13 for a full skin check. This patient is new to me. HPI: Laura Mills presents for a full skin check. She has a family history of melanoma and NMSC. She spent 30 years in [facility] before moving to [place] and admits to much unprotected sun exposure. Shehas no specific areas of concern today. Skin History: No personal history of skin cancer Medical History: Past Medical History Diagnosis Date ??? Depression ??? ADD (attention deficit disorder) ??? Seasonal allergies No Defibrillator/pacemaker/anti-coagulants Medications: Current Outpatient Prescriptions on File Prior to Visit Medication Sig Dispense Refill ??? montelukast (SINGULAIR) 10 mg Tablet Take 10 mg by mouth nightly. ??? buPROPion (WELLBUTRIN XL) 300 mg Tablet Sustained Release 24 hr Take 300 mg by mouth every morning. ??? Lisdexamfetamine 60 mg Capsule Take by mouth. ??? CIS Free Text Med - Progesterone ??? ESTRADIOL ORAL ??? Tretinoin, Emollient, (RENOVA) 0.02 % Crea 1 Appl(s), Top, QHS No current facility-administered medications on file prior to visit. Allergies: Allergies Allergen Reactions ??? Propoxyphene Hcl Family History: + Family history of melanoma or non-melanoma skin cancer- Mother (melanoma, BCC, SCC) No family history of atopy, psoriasis or other skin disease Social History: Expecting her second grandchild this summer! Review of Systems: - General: Feels well. - Skin: As per HPI; no other skin concerns. Examination: - Constitutional: Patient was alert, well-appearing and in no noticeable distress. - Skin: A full skin examination was performed. This includes the head, neck, face and scalp including behind the ears. The chest, abdomen, back, and axillae, as well as the arms, hands, palms, fingers. Legs, feet, toes and soles were also examined. Buttocks and breasts were also examined with patient consent. Genitalia were not examined. Gerardo Skin Type: 3 Specific skin findings: 1. Right calloway: firm papule, centrally raised and sclerotic, with peripheral hyperpigmentation and dimpling with lateral pressure. 2. 0.3-0.6cm light-brown evenly pigmented, well-demarcated macules on the back, chest, and arms No worrisome areas upon today's exam Diagnosis/Assessment/Treatment Plan: 1. Dermatofibroma -Patient reassured 2. Lentigines The nature of sun-induced photo-aging and skin cancers was discussed. Emphasized importance of sun protection, sun avoidance strategies, protective clothing, and sunscreen. I discussed warning signs for skin cancer, including the ABCDEs of melanoma. Encouraged pt to continue to monitor skin for changes and call if such occurs. [facility] [id number] RTC in 2 years for full skin check. Instructed to call with questions/concerns. Note initiated by Maryanne Corey CMA I am documenting this encounter acting as the scribe for and in the presence of Sulma Nixon PA-C (Bri) I performed the above scribed service and agree with the accuracy of the documentation in this encounter. Reviewed and signed by Sluma Nixon PA-C (Bri) Dermatology [facility] Patient seen in conjunction with staff physician: Chula Mondragon MD Section of Dermatology [facility] A copy of this report has been sent to the referring provider either by electronic messaging or by fax. documented in this encounter Plan of Treatment Upcoming Encounters Date Type Department Care Team (Late st Contact Info) Description 05/02/2024 1:45 PM EDT Office Visit Dermatology at [facility] [address] [place] [address] Chula Mondragon MD [facility] DR [address] [address] documented as of this encounter Visit Diagnoses Diagnosis Lentigines Other dyschromia Dermatofibroma Benign neoplasm of skin, site unspecified documented in this encounter Care Teams Rehab Therapy Manager Relationship Specialty Start Date End Date Shelton Hernandez MD PCP - General 06/06/14 03/29/19 documented as of this encounter
--- OUTSIDE RECORDS SUMMARY | 2024-03-24 00:10 | XMS_ITS | Encounter Summary ---
Author Organization Formerly [facility] [place] [address] Care Team Providers Care Card Puncher Name Role Phone AddisonBernie Ella GOMEZ Primary Care Provider + Reason for Visit * Reason Comments Skin Check Encounter Details Date Type Department Care Team (Late st Contact Info) Description 03/30/2019 2:00 PM EDT Office Visit Dermatology at [facility] [address] [place] [address] Chula Mondragon MD [facility] [place] [address] SK (seborrheic keratosis); Multiple benign nevi; Dermatofibroma; [...] Progress Notes * Chula Mondragon MD - 03/30/2019 2:00 PM EDT DERMATOLOGY ESTABLISHED PATIENT CLINIC NOTE Date of service: 03/30/2019 Laura Dickson : 1955 Provider: Chula Mondragon MD Chief Complaint Patient presents with ??? 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 Other: Dermatofibroma Lentigines ?? PATIENT PREFERENCES Preferred name: Laura Preferred contact method with results: Cell Phone Detailed message including biopsy results okay?: Yes HPI Laura Forman is a 63 y.o. year old female. Established patient, last seen by me on 01/24/18. Here today for a full skin examination. Patient denies any new skin concerns today. ADR: Allergies Allergen Reactions ??? Propoxyphene Hcl MEDS: Current Outpatient Medications Medication Sig Dispense Refill ??? gabapentin (NEURONTIN) 300 mg Capsule Take [...] complaints EXAM General: NAD, pleasant, cooperative Skin: #0 (bra and underwear off): Patient was asked to undress to the level of her comfort. Verbalized that the provider's preferenceis for the patient to remove all clothing [...] and genitalia were examined with patient's consent. Significant skin findings: A. Mons pubis: 0.4 cm evenly shaped, evenly pigmented macule. B. Scattered on the torso and extremities: Multiple, 0.3-0.5cm, medium-brown, evenly-pigmented macules and papules. All with regular pigment pattern on dermoscopy. No pigmented lesions suspicious formelanoma. C. Scattered on the torso and extremities: Multiple 0.4-0.6cm brown papules with waxy, stuck-on appearance. Milia-like cysts, comedone-like openings and/or fissuring on dermoscopy. D. Right García: firm papule, centrally raised and sclerotic, with peripheral hyperpigmentation and dimpling with lateral pressure. ASSESSMENT/PLAN: A. Nevus - Discussed benign nature of lesion and provided reassurance. No treatment necessary at this time. B. Multiple Benign Appearing Nevi - Discussed benign nature of lesion and provided reassurance. No treatment necessary at this time. C. Seborrheic Keratoses - Discussed benign nature of lesion and [...] encounter. Chula Mondragon MD Section of Dermatology [facility] documented in this encounter Plan of Treatment Upcoming Encounters Date Type Department Care Team (Late st Contact Info) Description 05/02/2024 1:45 PM EDT Office Visit Dermatology at [facility] [address] [place] [address] Chula Mondragon MD [facility] [place] [address] documented as of this encounter Visit Diagnoses Diagnosis SK (seborrheic keratosis) Other seborrheic keratosis Multiple benign nevi Benign neoplasm of skin, site unspecified Dermatofibroma Benign neoplasm of skin, site unspecified Nevus Benign neoplasm of skin, site unspecified documented in this encounter Care Teams Card Puncher Relationship Specialty Start Date End Date Bernie Jaime, CAMPUS RECEPTIONIST [address] [place] [address] PCP - General Family Medicine 03/30/19 documented as of this encounter
--- OUTSIDE RECORDS SUMMARY | 2024-03-24 00:10 | XMS_ITS | Encounter Summary ---
Author Organization [facility] [place] [address] Care Team Providers Care Quality Control Name Role Phone Bernie Jaime APRN Primary Care Provider + Encounter Details Date Type Department Care Team (Latest Contact Info) Description 05/14/2022 Travel Social History Tobacco Use Types Packs/Day [...] 1:45 PM EDT Office Visit Dermatology at [facility] [address] [place] [address] Chula Mondragon MD [facility] DR [address] [place] [address] documented as of this encounter Visit Diagnoses Not on filedocumented in this encounter Care Teams Quality Control Relationship Specialty Start Date End Date Bernie Jaime APRN [address] [place], [place] [address] PCP - General Family Medicine 9/12/19 documented as of this encounter
--- OUTSIDE RECORDS SUMMARY | 2024-03-24 00:10 | XMS_ITS | Encounter Summary ---
Author Organization [facility] [place] [address] Care Team Providers Care Workers Compensation Claims Analyst Name Role Phone Shelton Hernandez MD Primary Care Provider [phone] Encounter Details Date Type Department Care Team (Late st Contact Info) Description 06/26/2015 External [place] [address] Bere Quan MD [facility] [place] [address] Social History Tobacco Use Types Packs/Day Years [...] at [facility] [address] [place] [address] Chula Mondragon MD [facility] [place] [address] documented as of this encounter Procedures Procedure Name Priority Date/Time Associated Diagnosis Comments EXTERNAL LAB CBC CMP THYROID RESULTS PANEL Routine 06/12/2015 EXTERNAL LAB GI RESULTS PANEL Routine 06/12/2015 documented in this encounter Results * GI External Results (06/12/2015) HCV Viral Load <15 Comment:Undetected Historical Provider POINT OF CARE CHAPO T ORDERABLES * (ABNORMAL) CBC / CMP / Thyroid External Results (06/12/2015) White Blood Cell 5.08 Hemoglobin 13.4 12.0 - 16.0 Hematocrit 39.0 36.0 - 46.0 Mean Cell Volume 88.8 82.0 - 108.0 Platelet 284 Sodium 140 137 - 147 Potassium 4.3 3.4 - 5.3 Chloride 102 99 - 108 Carbon Dioxide 30(A) 22 - 29 Blood Urea Nitrogen 10 Creatinine 0.91 Est Glomerular Filtration Rate >60 Glucose 94 Calcium 9.2 8.7 - 10.7 Protein, Total 7.4 6.4 - 8.2 Albumin 3.9 3.5 - 5.0 Bilirubin, Total 0.34 Alkaline Phosphatase 71 Aspartate Aminotransferase 25 13 - 35 Alanine Aminotransferase 40(A) 7 - 35 Historical Provider EXTERNAL LAB LANDRY VARGAS documented in this encounter Visit Diagnoses Not on filedocumented in this encounter Care Teams Workers Compensation Claims Analyst Relationship Specialty Start Date End Date Shelton Hernandez MD PCP - General 06/06/14 03/29/19 documented as of this encounter
--- OUTSIDE RECORDS SUMMARY | 2024-03-24 00:10 | XMS_ITS | Encounter Summary ---
Author Organization [facility] [place] [address] Care Team Providers Care Checker Loader Name Role Phone Shelton Hernandez MD Primary Care Provider Encounter Details Date Type Department Care Team (Late st Contact Info) Description 07/31/2014 Notes [place] [address] Denise Godoy RN Social History Tobacco Use [...] Progress Notes * Denise Godoy RN - 07/31/2014 11:21 AM EST PA request submitted to [employer] for Harvoni x 12 weeks. May be required to use Viekira, particularly as she is not cirrhotic and is naive to treatment. Await response. documented in this encounter Plan of Treatment Upcoming Encounters Date Type Department Care Team (Late st Contact Info) Description 05/02/2024 1:45 PM EDT Office Visit Dermatology at [facility] [address] [place] [address] Chula Mondragon MD [facility] DR [address]RUT[place] [address] documented as of this encounter Visit Diagnoses Not on filedocumented in this encounter Care Teams Checker Loader Relationship Specialty Start Date End Date Shelton Hernandez MD PCP - General 06/06/14 03/29/19 documented as of this encounter
--- OUTSIDE RECORDS SUMMARY | 2024-03-24 00:10 | XMS_ITS | Encounter Summary ---
Author Organization [facility] [place] [address] Care Team Providers Care Sales Service Executive Name Role Phone Shelton Hernandez MD Primary Care Provider [phone] Reason for Visit * Reason Onset Date Comments Medication Refill 11/21/2014 Encounter Details Date Type Department Care Team (Late st Contact Info) Description 11/21/2014 Refill [place] [address] Rina Braun APRN [facility] [place] [address] Chronic hepatitis C without hepatic coma Social History Tobacco Use Types Packs/Day Years [...] 1:45 PM EDT Office Visit Dermatology at [facility] [address] [place] [phone] Chula Mondragon MD [facility] [place] [address] documented as of this encounter Visit Diagnoses Diagnosis Chronic hepatitis C without hepatic coma documented in this encounter Care Teams Sales Service Executive Relationship Specialty Start Date End Date Shelton Hernandez MD PCP - General 06/06/14 03/29/19 documented as of this encounter
--- OUTSIDE RECORDS SUMMARY | 2024-03-24 00:10 | XMS_ITS | Encounter Summary ---
Author Organization [facility] [place] [address] Care Team Providers Care Metal Sander And Finisher Name Role Phone Shelton Hernandez MD Primary Care Provider Reason for Visit * Reason Onset Date Comments Prior Authorization 11/23/2014 Encounter Details Date Type Department Care Team (Late st Contact Info) Description 11/23/2014 Tele[place] [address] Nicolasa Alberto bill of lading clerk Social History Tobacco Use Types Packs/Day Years Used Date Smoking Tobacco: Never Alcohol Use Standard Drinks/Week Comments No 0 (1 standard drink = 0.6 oz pur e alcohol) Sex and Gender Information Value Date Recorded Sex Assigned at Not on file Gender Identity Not on file Sexual Orientation Not on file documented as of this encounter Miscellaneous Notes * Telephone Encounter - Rina Braun APRN - 11/26/2014 1:36 PM EDT Left msg fo rpatient regarding insurance switch to viekira from [employer] * Telephone Encounter - Nicolasa Alberto RN - 11/23/2014 10:09 AM EDT Rec'd call from [facility]. Viekira RX needs PA, and cannot be filled at [facility]. Pt must use [email or web address]. They were able to take verbal order for RX and will receive RX transfer from [facility]. Approval for Viekira granted = 10/24/14 - 02/15/15. [facility] will be calling patient to set up delivery. We will get a fax or letter confirming approval, as will pt. Call to pt to update, she is not home. Called cell # and left detailed message on identifiable cell answ machine that medication V has been approved, that [facility]. Please call nurses back once she receives medication for more instructions. Pt calls back and has many questions about why the switch to Viekira from Harvoni, from what I can ascertain her insurance denied coverage of Harvoni and preferred drug is Viekira. She would like to talk to Luba about Viekira. documented in this encounter Plan of Treatment Upcoming Encounters Date Type Department Care Team (Late st Contact Info) Description 05/02/2024 1:45 PM EDT Office Visit Dermatology at [facility] [address] [place] [address] Chula Mondragon MD [facility] DR [address] [address] documented as of this encounter Visit Diagnoses Not on filedocumented in this encounter Care Teams Metal Sander And Finisher Relationship Specialty Start Date End Date Shelton Hernandez MD PCP - General 06/06/14 03/29/19 documented as of this encounter
--- NOTE | 2024-03-24 08:50 | DI.CT_ITS ---
Exam(s) CT CHEST WO EXAM: CT CHEST WO CLINICAL HISTORY: SOLITARY PULMONARY NODULE R91.1. TECHNIQUE: Imaging protocol: Axial computed tomography images were obtained and coronal and sagittal reformatted images were created and reviewed. COMPARISON: CR XR CHEST 2V PA LATERAL from 07/11/2018 FINDINGS: Tracheobronchial tree: Patent where visualized. No bronchiectasis is present. Pulmonary parenchyma: No consolidation or dominant measurable mass. There is scarring or atelectasis seen in the lingula and right middle lobe. No focal consolidating infiltrates are seen. There is a 3 mm pulmonary nodule in the left lower lobe (series 3, image 105). Mediastinum and Margo: No dominant adenopathy or fluid collection. The esophagus is unremarkable.There is a small hiatal hernia. Thyroid gland: Unremarkable. Pleura: No effusion or pneumothorax. Heart: The heart is not dilated. Mild coronary artery calcification is present. No pericardial effus ion. Aorta: Thoracic aorta non-dilated. Atherosclerotic calcification is present. Upper abdomen: Unremarkable. Lymph nodes: Within normal limits. Soft tissues: Unremarkable. Bones:Within normal limits for the patient's age. IMPRESSION: 1. 3 mm left lower lobe pulmonary nodule. Solid nodules smaller than 6 mm do not require routine follow-up in all patients with high clinical r isk; however, some nodules smaller than 6 mm with suspicious morphology, upper lobe location, or both may warrant follow-up at 12 months (grade 2A; weak recommendation, high-quality evidence). (Sparkle et al., 2017) Single solid noncalcified nodules. ???Solid nodules smaller than 6 mm (those 5 mm or smaller) do not require routine follow-up in patients at low risk (grade 1C; strong recommendation, low- or very-low- quality evidence). (Sparkle et al., 2017) 2. No acute pulmonary process. 3. Coronary artery calcification and atherosclerotic calcification of the thoracic aorta. RADIATION DOSE DELIVERED: 130.19mGy.cm Total DLP 130.19mGy.cm Total DLP DATA REPOSITORY: All CT scans at this facility are submitted to the National Radiology Data Registry (NRDR) Dose Index Registry (DIR) with the [employer] (ACR). RADIATION OPTIMIZATION: All CT scans at this facility use at least one of these dose optimization te chniques: automated exposure control; mA and/or kV adjustment per patient size (includes targeted exa ms where dose is matched to clinical indication); or iterative reconstruction.
== END 2024-03-24 00:28 ==
LOC: DI 00:08
PROVIDERS: PCP Family Medicine; Visit Provider Family Medicine
DX: R91.1 Solitary pulmonary nodule (principal)
CPT/HCPCS: 71250

== ENCOUNTER → 2024-03-29 13:34 | Outpatient (BNVA) | payer MEDICARE, SELFPAY | PROVIDERS: PCP Family Medicine; Referring Provider Family Medicine; Visit Provider Nurse Practitioner Adult Health | DX: B02.29 Other postherpetic nervous system involvement (principal) | CPT/HCPCS: 99205 ==

== ENCOUNTER 2025-01-03 14:27 | Outpatient (REF) | payer MEDICARE, SELFPAY ==
[2025-01-03 15:30] LABS: ALT 29 U/L (14-59); AST 24 U/L (15-37); Albumin 4.1 g/dL (3.4-5.0); Alkaline Phosphatase 57 U/L (46-116); Anion Gap 6.9 mmol/L (3-11); BUN 13 mg/dL (7-18); Bilirubin, Total 0.4 mg/dL (0.2-1.0); CO2 30.1 mmol/L (21.0-32.0); CREATININE 0.8 mg/dL (0.55-1.02); Calcium 9.1 mg/dL (8.5-10.1); Chloride 103 mmol/L (98-107); Estimated GFR 78.72 (mL/min/1.73m2); Glucose 105 mg/dL (74-106); Potassium 4.3 mmol/L (3.5-5.1); Sodium 140 mmol/L (136-145); Total Protein 7.6 g/dL (6.4-8.2)
[2025-01-03 16:30] LABS: Hemoglobin A1C 5.6 % (<5.7)
== END 2025-01-03 14:28 | disposition home or self-care (01) ==
LOC: NCHCN 14:27
PROVIDERS: PCP Family Medicine; Visit Provider Family Medicine
DX: R73.03 Prediabetes (principal)
CPT/HCPCS: 80053; 83036

== ENCOUNTER → 2025-07-05 00:19 | Outpatient (CLI) | payer MEDICARE, SELFPAY ==
--- NOTE | 2025-07-05 08:00 | DI.RAD_ITS ---
Exam(s) XR FOOT LT COMPLETE EXAM: XR FOOT LT COMPLETE CLINICAL HISTORY: Left great toe pain,LT FOOT PAIN,M79.672,M79.675. TECHNIQUE: 2D digital imaging was performed of the left foot. Four images were obtained. AP, oblique and lateral views were obtained. COMPARISON: No exams were available for comparison FINDINGS: BONES: No acute fracture is present. No bony destructive lesion is seen. JOINTS: No dislocation present. At the 1st MTP joint, there is mild joint space narrowing and osteophytes. There is a small osteophytes seen at the dorsal aspect of the 1st metatarsal head. The joint spaces are otherwise well maintained. There are no erosions. SOFT TISSUE: Normal. IMPRESSION: Osteoarthritis of the 1st MTP joint. DATA REPOSITORY: RADIATION DOSE DELIVERED:
--- NOTE | 2025-07-05 09:25 | DI.RAD_ITS ---
Exam(s) XR FOOT RT COMPLETE EXAM: XR FOOT RT COMPLETE CLINICAL HISTORY: Right great toe pain,RT FOOT PAIN,M79.674,M79.671. TECHNIQUE: 2D digital imaging was performed of the right foot. Three images were obtained. AP, oblique and lateral views were obtained. COMPARISON: No exams were available for comparison FINDINGS: BONES: No acute fracture is present. No bony destructive lesion is seen. JOINTS: No dislocation present. There are small osteophytes seen at the 1st MTP joint. No erosions are seen. No soft tissue calcifications are present. The joint spaces are otherwise well maintained. SOFT TISSUE: Normal. IMPRESSION: Mild osteoarthritis of the 1st MTP joint. DATA REPOSITORY: RADIATION DOSE DELIVERED:
== END ==
LOC: DI 00:19
PROVIDERS: PCP Family Medicine; Visit Provider Podiatrist
DX: M79.674 Pain in right toe(s) (principal); M79.675 Pain in left toe(s); M20.21 Hallux rigidus, right foot; M20.22 Hallux rigidus, left foot; M20.41 Other hammer toe(s) (acquired), right foot; M20.42 Other hammer toe(s) (acquired), left foot; M79.2 Neuralgia and neuritis, unspecified
CPT/HCPCS: 20600; 99213; J0702; J1100; 73630